=== PATIENT | female | born 1995 | race African-American/Black ===

== ENCOUNTER 2018-10-01 12:52 | Emergency (ER) | payer OTHER ==
[2018-10-01] MEDS ORDERED: IPRATROPIUM-ALBUTEROL 3 ML NEB INHALATION STA (13:05)
--- NOTE | 2018-10-01 13:07 | ED ---
SOB HPI - General Chief Complaint: Shortness of Breath Stated Complaint: Chest pain, ÁNGEL/asthma Time Seen by Provider: 10/01/18 13:00 Source: patient, RN notes reviewed Mode of arrival: ambulatory Limitations: no limitations - History of Present Illness Initial Comments: This is a 23-year-old female presents emergency Department with chief complaint of shortness of breath. Patient states she has underlying asthma and states that she recently has come down with upper respiratory infection. Patient states that she ran over her inhaler which she's noticed increasing wheezing and shortness of breath. Patient denies fever, chills, ear pain, sore throat, fever or chills. Patient has no nausea vomiting diarrhea constipation. She has no current chest pain. - Related Data Previous Rx's Medication Instructions Recorded Albuterol Sulfate [Proair Hfa] 1 - 2 puff INHALATION Q4HR PRN #1 10/01/18 inhaler Azithromycin [Zithromax Z-pack] 0 mg PO DIRECTED #1 pack 10/01/18 predniSONE 50 mg PO DAILY #5 tab 10/01/18 Allergies Allergy/AdvReac Type Severity Reaction Status Date / Time No Known Allergies Allergy Verified 10/01/18 13:25 Review of Systems ROS Statement: Those systems with pertinent positive or pertinent negative responses have been documented in the HPI. ROS Other: All systems not noted in ROS Statement are negative. Past Medical History Past Medical History: Asthma History of Any Multi-Drug Resistant Organisms: None Reported Past Surgical History: Appendectomy, Section Past Anesthesia/Blood Transfusion Reactions: No Reported Reaction Past Psychological History: No Psychological Hx Reported Smoking Status: Current some day smoker Past Alcohol Use History: None Reported Past Drug Use History: None Reported General Exam Limitations: no limitations General appearance: alert, in no apparent distress Head exam: Present: atraumatic, normocephalic, normal inspection Eye exam: Present: normal appearance, PERRL, EOMI. Absent: scleral icterus, conjunctival injection, periorbital swelling ENT exam: Present: normal exam, mucous membranes moist Neck exam: Present: normal inspection, full ROM. Absent: tenderness, meningismus, lymphadenopathy Respiratory exam: Present: wheezes. Absent: normal lung sounds bilaterally, respiratory distress, rales, rhonchi, stridor Cardiovascular Exam: Present: regular rate, normal rhythm, normal heart sounds. Absent: systolic murmur, diastolic murmur, rubs, gallop, clicks GI/Abdominal exam: Present: soft, normal bowel sounds. Absent: distended, tenderness, guarding, rebound, rigid Course Vital Signs 10/01/18 10/01/18 10/01/18 12:54 13:19 13:30 Temperature 99.1 F Pulse Rate 93 96 Respiratory 18 22 Rate Blood Pressure 126/88 O2 Sat by Pulse 99 Oximetry 10/01/18 13:39 Temperature Pulse Rate 92 Respiratory Rate Blood Pressure O2 Sat by Pulse Oximetry Medical Decision Making - Medical Decision Making 23-year-old female presents emergency Department chief complaint shortness breath with her asthma. Chest x-ray is unremarkable. She did receive a DuoNeb treatment which has resolved her symptoms. Patient be discharged with prednisone, pro-air inhaler. Patient will return for any worsening symptoms. Disposition Clinical Impression: Asthma exacerbation Disposition: HOME SELF-CARE Condition: Stable Instructions (If sedation given, give patient instructions): Asthma (ED) Additional Instructions: Please return to the Emergency Department if symptoms worsen or any other concerns. Prescriptions: predniSONE 50 mg PO DAILY #5 tab Albuterol Sulfate [Proair Hfa] 1 - 2 puff INHALATION Q4HR PRN #1 inhaler PRN Reason: difficulty in breathing Azithromycin [Zithromax Z-pack] 0 mg PO DIRECTED #1 pack Is patient prescribed a controlled substance at d/c from ED?: No Referrals: None,Stated [Primary Care Provider] - 1-2 days Time of Disposition: 13:48
--- NOTE | 2018-10-01 13:20 | XR ---
EXAMINATION TYPE: XR chest 2V DATE OF EXAM: 10/01/2018 COMPARISON: 02/28/2014 HISTORY: Cough and chest pain TECHNIQUE: Frontal and lateral views of the chest are obtained. FINDINGS: There is no focal air space opacity, pleural effusion, or pneumothorax seen. The cardiac silhouette size is within normal limits. The osseous structures are intact. IMPRESSION: No acute cardiopulmonary process.
[2018-10-01] MEDS ORDERED: IBUPROFEN 600 MG TAB PO STA (13:46)
[2018-10-01] MEDS ORDERED: methylPREDNISolone SOD SUCCI 125 MG/2 ML VIAL IM ONE (13:46)
[2018-10-01 14:14] VITALS: BP 139/94; PULSE 93; RESP 18; TEMP 99.3
== END 2018-10-01 14:15 | disposition home or self-care (01) ==
LOC: EC 12:52
DX: J45.901 Unspecified asthma with (acute) exacerbation (principal); F17.200 Nicotine dependence, unspecified, uncomplicated; Z90.49 Acquired absence of other specified parts of digestive tract
CPT/HCPCS: 99285; 94640; 71046; J2930

== ENCOUNTER 2018-12-16 10:53 | Emergency (ER) | payer OTHER ==
[2018-12-16 11:02] VITALS: RESP 18
[2018-12-16] MEDS ORDERED: SODIUM CHLORIDE 0.9% 1,000 ML IV STA (11:23)
[2018-12-16] MEDS ORDERED: KETOROLAC 30 MG/ML 1 ML VIAL IVP STA (11:23)
--- NOTE | 2018-12-16 11:28 | ED ---
Abdominal Pain HPI - General Chief Complaint: Abdominal Pain Stated Complaint: abdominal & back pain/vomiting Time Seen by Provider: 12/16/18 11:07 Source: patient Mode of arrival: ambulatory Limitations: no limitations - History of Present Illness Initial Comments: Patient is a 23-year-old female presenting to the emergency Department with complaints of abdominal pain times this morning. Patient reports waking up at 4 AM and had one episode of vomiting. Patient states then her upper abdomen started hurting and has been consistent since then. Patient states the pain is crampy and sharp in nature and located in the epigastric and right upper david drant. Patient states she is not been able to eat or drink anything today. Patient denies nausea and diarrhea at this time. Patient denies fever, chills, chest pain, shortness of breath. Patient reports history of appendectomy and 2 C-sections. Patient has history of asthma that is pretty well controlled. No other significant past medical history. Patient does not take daily medications. No other complaints at this time. - Related Data Home Medications Medication Instructions Recorded Confirmed No Known Home Medications 12/16/18 12/16/18 Allergies Allergy/AdvReac Type Severity Reaction Status Date / Time No Known Allergies Allergy Verified 12/16/18 11:23 Review of Systems ROS Statement: Those systems with pertinent positive or pertinent negative responses have been documented in the HPI. ROS Other: All systems not noted in ROS Statement are negative. Past Medical History Past Medical History: Asthma History of Any Multi-Drug Resistant Organisms: None Reported Past Surgical History: Appendectomy, Section Past Anesthesia/Blood Transfusion Reactions: No Reported Reaction Past Psychological History: No Psychological Hx Reported Smoking Status: Former smoker Past Alcohol Use History: None Reported Past Drug Use History: Marijuana General Exam - General Exam Comments Initial Comments: GENERAL: Well-appearing, well-nourished and in no acute distress, appears uncomfortable. HEAD: Atraumatic, normocephalic. EYES: Pupils equal round and reactive to light, extraocular movements intact, sclera anicteric, conjunctiva are normal. ENT: TMs normal, nares patent, oropharynx clear without exudates. Moist mucous membranes. NECK: Normal range of motion, supple without lymphadenopathy or JVD. LUNGS: Breath sounds clear to auscultation bilaterally and equal. No wheezes rales or rhonchi. HEART: Regular rate and rhythm without murmurs, rubs or gallops. ABDOMEN: Tenderness to the upper left and right quadrants as well as epigastric area. Soft, normoactive bowel sounds. No rebound. No masses appreciated. : Deferred EXTREMITIES: Normal range of motion, no pitting or edema. No clubbing or cyanosis. NEUROLOGICAL: Cranial nerves II through XII grossly intact. Normal speech, normal gait. PSYCH: Normal mood, normal affect. SKIN: Warm, Dry, normal turgor, no rashes or lesions noted. Limitations: no limitations Course Vital Signs 12/16/18 12/16/18 11:00 13:22 Temperature 98.5 F 98.0 F Pulse Rate 86 76 Respiratory 18 18 Rate Blood Pressure 123/78 132/71 O2 Sat by Pulse 100 99 Oximetry Medical Decision Making - Medical Decision Making Patient is a 23-year-old female presenting with right upper quadrant and epigastric pain as well as one episode of vomiting since this morning. Patient's vital signs are stable, afebrile. Patient is not been able eat or drink today. On exam patient has tenderness of the right upper quadrant and epigastric area. CBC, CMP, lactic acid are all within normal limits. Lipase is 83. UA is within normal limits. Urine HCG came back positive. Ultrasound of the gallbladder revealed a contracted gallbladder limiting the exam. No other evidence of acute cholecystitis. No other acute findings. Patient did receive some fluids and Toradol (before regnancy results.) Discussed with patient that her symptoms could be related to her new found and/or a viral illness. Patient is stable for discharge. Patient is in agreement with this plan. Case discussed with Dr. Jacobsen. Return parameters were discussed with the patient and she verbalized understanding. Patient will follow up with her [facility] [facility]. - Lab Data Result diagrams: 12/16/18 11:35 12/16/18 11:35 Lab Results 12/16/18 12/16/18 12/16/18 Range/Units 11:35 11:35 11:35 WBC 8.8 (3.8-10.6) k/uL RBC 4.53 (3.80-5.40) m/uL Hgb 13.0 (11.4-16.0) gm/dL Hct 39.4 (34.0-46.0) % MCV 86.9 (80.0-100.0) fL MCH 28.7 (25.0-35.0) pg MCHC 33.0 (31.0-37.0) g/dL RDW 13.9 (11.5-15.5) % Plt Count 247 (150-450) k/uL Neutrophils % 61 % Lymphocytes % 26 % Monocytes % 4 % Eosinophils % 7 % Basophils % 0 % Neutrophils # 5.4 (1.3-7.7) k/uL Lymphocytes # 2.3 (1.0-4.8) k/uL Monocytes # 0.3 (0-1.0) k/uL Eosinophils # 0.6 (0-0.7) k/uL Basophils # 0.0 (0-0.2) k/uL Sodium 141 (137-145) mmol/L Potassium 3.6 (3.5-5.1) mmol/L Chloride 110 H (98-107) mmol/L Carbon Dioxide 24 (22-30) mmol/L Anion Gap 7 mmol/L BUN 10 (7-17) mg/dL Creatinine 0.65 (0.52-1.04) mg/dL Est GFR (CKD-EPI)AfAm >90 (>60 ml/min/1.73 sqM) Est GFR (CKD-EPI)NonAf >90 (>60 ml/min/1.73 sqM) Glucose 87 (74-99) mg/dL Plasma Lactic Acid Mao (0.7-2.0) mmol/L Calcium 8.9 (8.4-10.2) mg/dL Total Bilirubin 0.3 (0.2-1.3) mg/dL AST 16 (14-36) U/L ALT 16 (9-52) U/L Alkaline Phosphatase 67 (38-126) U/L Total Protein 6.3 (6.3-8.2) g/dL Albumin 3.6 (3.5-5.0) g/dL Amylase 77 (30-110) U/L Lipase 83 (23-300) U/L Urine Color Urine Appearance (Clear) Urine pH (5.0-8.0) Ur Specific [place] (1.001-1.035) Urine Protein (Negative) Urine Glucose (UA) (Negative) Urine Ketones (Negative) Urine Blood (Negative) Urine Nitrite (Negative) Urine Bilirubin (Negative) Urine Urobilinogen (<2.0) mg/dL Ur Leukocyte Esterase (Negative) Urine HCG, Qual Detected (Not Detectd) 12/16/18 12/16/18 Range/Units 11:35 12:20 WBC (3.8-10.6) k/uL RBC (3.80-5.40) m/uL Hgb (11.4-16.0) gm/dL Hct (34.0-46.0) % MCV (80.0-100.0) fL MCH (25.0-35.0) pg MCHC (31.0-37.0) g/dL RDW (11.5-15.5) % Plt Count (150-450) k/uL Neutrophils % % Lymphocytes % % Monocytes % % Eosinophils % % Basophils % % Neutrophils # (1.3-7.7) k/uL Lymphocytes # (1.0-4.8) k/uL Monocytes # (0-1.0) k/uL Eosinophils # (0-0.7) k/uL Basophils # (0-0.2) k/uL Sodium (137-145) mmol/L Potassium (3.5-5.1) mmol/L Chloride (98-107) mmol/L Carbon Dioxide (22-30) mmol/L Anion Gap mmol/L BUN (7-17) mg/dL Creatinine (0.52-1.04) mg/dL Est GFR (CKD-EPI)AfAm (>60 ml/min/1.73 sqM) Est GFR (CKD-EPI)NonAf (>60 ml/min/1.73 sqM) Glucose (74-99) mg/dL Plasma Lactic Acid Mao 0.7 (0.7-2.0) mmol/L Calcium (8.4-10.2) mg/dL Total Bilirubin (0.2-1.3) mg/dL AST (14-36) U/L ALT (9-52) U/L Alkaline Phosphatase (38-126) U/L Total Protein (6.3-8.2) g/dL Albumin (3.5-5.0) g/dL Amylase (30-110) U/L Lipase (23-300) U/L Urine Color Yellow Urine Appearance Clear (Clear) Urine pH 6.5 (5.0-8.0) Ur Specific [place] 1.022 (1.001-1.035) Urine Protein Negative (Negative) Urine Glucose (UA) Negative (Negative) Urine Ketones Negative (Negative) Urine Blood Negative (Negative) Urine Nitrite Negative (Negative) Urine Bilirubin Negative (Negative) Urine Urobilinogen <2.0 (<2.0) mg/dL Ur Leukocyte Esterase Negative (Negative) Urine HCG, Qual (Not Detectd) Disposition Clinical Impression: Abdominal pain, Vomiting, Disposition: HOME SELF-CARE Condition: Stable Instructions (If sedation given, give patient instructions): Abdominal Pain (ED) Additional Instructions: Please return to the Emergency Department if symptoms worsen or any other concerns. Follow-up with [facility] [facility]. Is patient prescribed a controlled substance at d/c from ED?: No Referrals: None,Stated [Primary Care Provider] - 1-2 days
[2018-12-16 11:48] LABS: Basophils % (A) 0 %; Eosinophils # (A) 0.6 k/uL (0-0.7); Eosinophils % (A) 7 %; HCT 39.4 % (34.0-46.0); Lymphocytes # (A) 2.3 k/uL (1.0-4.8); Lymphocytes % (A) 26 %; MCH 28.7 pg (25.0-35.0); MCV 86.9 fL (80.0-100.0); Mean Platelet Volume 7.3; Monocytes # (A) 0.3 k/uL (0-1.0); Monocytes % (A) 4 %; Neutrophils # (A) 5.4 k/uL (1.3-7.7); Neutrophils % (A) 61 %; Platelet Count 247 k/uL (150-450); RBC 4.53 m/uL (3.80-5.40); RDW 13.9 % (11.5-15.5); WBC 8.8 k/uL (3.8-10.6)
[2018-12-16 11:55] LABS: ALT 16 U/L (9-52); AST 16 U/L (14-36); African American GFR (CKD) >90 (>60 ml/min/1.73 sqM); Albumin 3.6 g/dL (3.5-5.0); Alkaline Phosphatase 67 U/L (38-126); Amylase 77 U/L (30-110); Anion Gap 7 mmol/L; Blood Urea Nitrogen 10 mg/dL (7-17); Calcium 8.9 mg/dL (8.4-10.2); Carbon Dioxide 24 mmol/L (22-30); Chloride 110 mmol/L (98-107); Glucose 87 mg/dL (74-99); Potassium 3.6 mmol/L (3.5-5.1); Sodium 141 mmol/L (137-145); Total Bilirubin 0.3 mg/dL (0.2-1.3); Total Protein 6.3 g/dL (6.3-8.2)
[2018-12-16 11:57] LABS: Appearance,Urine Clear (Clear); Bilirubin,Urine Negative (Negative); Blood,Urine Negative (Negative); Color,Urine Yellow; Glucose,Urine (UA) Negative (Negative); Ketones,Urine Negative (Negative); Leukocyte Esterase,Urine Negative (Negative); Nitrite,Urine Negative (Negative); PH, Urine 6.5 (5.0-8.0); Protein,Urine Negative (Negative); Specific Gravity,Urine 1.022 (1.001-1.035); Urobilinogen,Urine <2.0 mg/dL (<2.0)
--- NOTE | 2018-12-16 12:44 | US ---
EXAMINATION TYPE: US gallbladder DATE OF EXAM: 12/16/2018 COMPARISON: NONE CLINICAL HISTORY: Pain. Generalized pain. Patient states she did not eat or drink today. Vomiting. EXAM MEASUREMENTS: Liver Length: 14.7 cm Gallbladder Wall: 0.3 cm CBD: 0.3 cm Right Kidney: 9.2 x 5.3 x 4.3 cm Pancreas: wnl Liver: wnl Gallbladder: Contracted, limited evaluation Evidence for sonographic Woody's sign: neg CBD: wnl Right Kidney: wnl IMPRESSION: Contracted gallbladder limiting evaluation for gallbladder wall thickening. No other evid ence of acute cholecystitis.
[2018-12-16 13:23] VITALS: BP 132/71; PULSE 76; TEMP 98
== END 2018-12-16 13:23 | disposition home or self-care (01) ==
LOC: EC 10:53
DX: O99.619 Diseases of the digestive system complicating pregnancy, unspecified trimester (principal); K82.0 Obstruction of gallbladder; O99.89 Other specified diseases and conditions complicating pregnancy, childbirth and the puerperium; M54.9 Dorsalgia, unspecified; Z90.49 Acquired absence of other specified parts of digestive tract; Z87.891 Personal history of nicotine dependence; Z3A.00 Weeks of gestation of pregnancy not specified
CPT/HCPCS: 99284; 96374; 96361; 36415; 80053; 82150; 83605; 83690; 85025; 81003; 81025; 84702; 76705; J1885

== ENCOUNTER 2019-01-03 23:20 | Emergency (ER) | payer OTHER ==
[2019-01-04] MEDS ORDERED: SODIUM CHLORIDE 0.9% 1,000 ML IV STA (00:19)
[2019-01-04] MEDS ORDERED: ACETAMINOPHEN TAB 500 MG TAB PO STA (01:30)
[2019-01-04] MEDS ORDERED: ALBUTEROL NEBULIZED 2.5 MG/3 ML INHALATION STA (01:37)
[2019-01-04 01:54] LABS: Basophils % (A) 0 %; Eosinophils # (A) 0.7 k/uL (0-0.7); Eosinophils % (A) 5 %; HCT 38.3 % (34.0-46.0); HGB 12.7 gm/dL (11.4-16.0); Lymphocytes # (A) 3.3 k/uL (1.0-4.8); Lymphocytes % (A) 26 %; MCH 29.4 pg (25.0-35.0); MCHC 33.1 g/dL (31.0-37.0); MCV 88.8 fL (80.0-100.0); Mean Platelet Volume 7.5; Monocytes # (A) 0.6 k/uL (0-1.0); Monocytes % (A) 5 %; Neutrophils # (A) 7.8 k/uL (1.3-7.7); Neutrophils % (A) 62 %; Platelet Count 263 k/uL (150-450); RBC 4.31 m/uL (3.80-5.40); RDW 14.4 % (11.5-15.5); WBC 12.6 k/uL (3.8-10.6)
[2019-01-04 01:56] LABS: Appearance,Urine Clear (Clear); Bilirubin,Urine Negative (Negative); Blood,Urine Negative (Negative); Color,Urine Light Yellow; Glucose,Urine (UA) Negative (Negative); Ketones,Urine Negative (Negative); Leukocyte Esterase,Urine Negative (Negative); Nitrite,Urine Negative (Negative); PH, Urine 6.5 (5.0-8.0); Protein,Urine Negative (Negative); Specific Gravity,Urine 1.011 (1.001-1.035); Urobilinogen,Urine <2.0 mg/dL (<2.0)
--- NOTE | 2019-01-04 01:56 | ED ---
Abdominal Pain HPI - General Chief Complaint: Abdominal Pain Stated Complaint: Abd Pain, Preg Time Seen by Provider: 01/03/19 23:34 Source: patient Mode of arrival: ambulatory Limitations: no limitations - History of Present Illness Initial Comments: 24-year-old female patient presents to the emergency department today for evaluation of right-sided abdominal pain. Patient states she is also experiencing right low back pain. Patient states that she has had positive test but she is unsure how far along she is. States her last period was in November. She denies any abnormal vaginal bleeding or discharge. Denies any hematuria, dysuria, urinary frequency, urinary urgency. Denies abnormal vaginal bleeding or discharge. She denies nausea or vomiting with this. Denies constipation or diarrhea. Denies fever or chills. Patient is . She has first appointment with Dr. Viera on 01/18/19. Patient denies any recent rash, shortness breath, chest pain, abdominal pain, back pain, numbness, tingling, dizziness, weakness, headache, visual changes, or any other complaints. - Related Data Home Medications Medication Instructions Recorded Confirmed No Known Home Medications 12/16/18 12/16/18 Allergies Allergy/AdvReac Type Severity Reaction Status Date / Time No Known Allergies Allergy Verified 12/16/18 11:23 Review of Systems ROS Statement: Those systems with pertinent positive or pertinent negative responses have been documented in the HPI. ROS Other: All systems not noted in ROS Statement are negative. Past Medical History Past Medical History: Asthma History of Any Multi-Drug Resistant Organisms: None Reported Past Surgical History: Appendectomy, Section Past Anesthesia/Blood Transfusion Reactions: No Reported Reaction Past Psychological History: No Psychological Hx Reported Smoking Status: Former smoker Past Alcohol Use History: None Reported Past Drug Use History: Marijuana General Exam Limitations: no limitations General appearance: alert, in no apparent distress, other (This is a well- developed, well-nourished adult female patient in no acute distress. Vital signs upon presentation are temperature 98.7F, pulse 90, respirations 18, blood pressure 111/75, pulse ox 100% on room air.) Eye exam: Present: normal appearance, PERRL, EOMI. Absent: scleral icterus, conjunctival injection, periorbital swelling ENT exam: Present: normal exam, normal oropharynx, mucous membranes moist Respiratory exam: Present: normal lung sounds bilaterally. Absent: respiratory distress, wheezes, rales, rhonchi, stridor Cardiovascular Exam: Present: regular rate, normal rhythm, normal heart sounds. Absent: systolic murmur, diastolic murmur, rubs, gallop, clicks GI/Abdominal exam: Present: soft, tenderness (Right middle and right lower quadrant tenderness. ), normal bowel sounds. Absent: distended, guarding, rebound, rigid Neurological exam: Present: alert, oriented X3, CN II-XII intact Psychiatric exam: Present: normal affect, normal mood Skin exam: Present: warm, dry, intact, normal color. Absent: rash Course Vital Signs 01/03/19 01/04/19 01/04/19 23:26 02:16 02:22 Temperature 98.7 F Pulse Rate 90 92 92 Respiratory 18 Rate Blood Pressure 111/75 O2 Sat by Pulse 100 Oximetry Medical Decision Making - Medical Decision Making 24-year-old female patient presents to the emergency department today for evaluation of right-sided abdominal pain. Physical examination did reveal right mid abdomen and right lower quadrant tenderness. No CVA tenderness. Labs reviewed and did reveal mildly elevated white blood cell count at 12.6. Urinalysis showed no evidence for infection or red blood cells. Patient denies any abnormal vaginal bleeding or discharge. Transvaginal ultrasound was obtained and did show a viable intrauterine measuring 6 weeks. I did discuss findings and results with the patient. Upon reevaluation she reports her abdominal pain has resolved. We did discuss possibility of appendicitis given location of pain. She is instructed to follow-up with her primary care physician for recheck in 1-2 days. Return parameters were discussed in detail. She is to maintain low threshold for return. She verbalizes understanding and agrees with this plan. - Lab Data Result diagrams: 01/04/19 00:46 01/04/19 00:46 Lab Results 01/04/19 01/04/19 01/04/19 Range/Units 00:46 00:46 00:46 WBC 12.6 H (3.8-10.6) k/uL RBC 4.31 (3.80-5.40) m/uL Hgb 12.7 (11.4-16.0) gm/dL Hct 38.3 (34.0-46.0) % MCV 88.8 (80.0-100.0) fL MCH 29.4 (25.0-35.0) pg MCHC 33.1 (31.0-37.0) g/dL RDW 14.4 (11.5-15.5) % Plt Count 263 (150-450) k/uL Neutrophils % 62 % Lymphocytes % 26 % Monocytes % 5 % Eosinophils % 5 % Basophils % 0 % Neutrophils # 7.8 H (1.3-7.7) k/uL Lymphocytes # 3.3 (1.0-4.8) k/uL Monocytes # 0.6 (0-1.0) k/uL Eosinophils # 0.7 (0-0.7) k/uL Basophils # 0.0 (0-0.2) k/uL Sodium 137 (137-145) mmol/L Potassium 3.7 (3.5-5.1) mmol/L Chloride 106 (98-107) mmol/L Carbon Dioxide 24 (22-30) mmol/L Anion Gap 7 mmol/L BUN 13 (7-17) mg/dL Creatinine 0.47 L (0.52-1.04) mg/dL Est GFR (CKD-EPI)AfAm >90 (>60 ml/min/1.73 sqM) Est GFR (CKD-EPI)NonAf >90 (>60 ml/min/1.73 sqM) Glucose 71 L (74-99) mg/dL Calcium 9.6 (8.4-10.2) mg/dL Total Bilirubin 0.2 (0.2-1.3) mg/dL AST 19 (14-36) U/L ALT 24 (9-52) U/L Alkaline Phosphatase 78 (38-126) U/L Total Protein 6.9 (6.3-8.2) g/dL Albumin 4.0 (3.5-5.0) g/dL Amylase 86 (30-110) U/L Lipase 103 (23-300) U/L Urine Color Light Yellow Urine Appearance Clear (Clear) Urine pH 6.5 (5.0-8.0) Ur Specific [place] 1.011 (1.001-1.035) Urine Protein Negative (Negative) Urine Glucose (UA) Negative (Negative) Urine Ketones Negative (Negative) Urine Blood Negative (Negative) Urine Nitrite Negative (Negative) Urine Bilirubin Negative (Negative) Urine Urobilinogen <2.0 (<2.0) mg/dL Ur Leukocyte Esterase Negative (Negative) - Radiology Data Radiology results: report reviewed Transvaginal ultrasound was obtained. Report was reviewed in its entirety. Impression by Dr. Paul shows viable single intrauterine measuring 6 weeks 0 days for heart rate of 116. Estimated delivery date of 08/30/2019. Disposition Clinical Impression: Abdominal pain, Early stage of Disposition: HOME SELF-CARE Condition: Good Instructions (If sedation given, give patient instructions): Abdominal Pain in (ED) Additional Instructions: Increase fluids. Rest. Take Tylenol for pain control. Follow-up with your primary care physician and [facility] for recheck as soon as possible. Return to the emergency department immediately for any new, worsening, or concerning symptoms. Is patient prescribed a controlled substance at d/c from ED?: No Referrals: Ravinder Viera DO [Doctor of Osteopathic Medicine] - 1-2 days Time of Disposition: 03:17
[2019-01-04 02:07] LABS: ALT 24 U/L (9-52); AST 19 U/L (14-36); African American GFR (CKD) >90 (>60 ml/min/1.73 sqM); Alkaline Phosphatase 78 U/L (38-126); Amylase 86 U/L (30-110); Anion Gap 7 mmol/L; Blood Urea Nitrogen 13 mg/dL (7-17); Calcium 9.6 mg/dL (8.4-10.2); Carbon Dioxide 24 mmol/L (22-30); Chloride 106 mmol/L (98-107); Glucose 71 mg/dL (74-99); Potassium 3.7 mmol/L (3.5-5.1); Sodium 137 mmol/L (137-145); Total Bilirubin 0.2 mg/dL (0.2-1.3); Total Protein 6.9 g/dL (6.3-8.2)
--- NOTE | 2019-01-04 03:01 | US ---
Ultrasound First Trimester INDICATION: Pelvic pain COMPARISON: None. TECHNIQUE: Real-time sonographic evaluation of the female pelvis obtained using grayscale and color flow. Transabdominal technique is utilized. FINDINGS: The uterus measures 9.4 x 5 x 2 x 5.4 cm. There is an intrauterine gestational sac containing a yolk sac and pole. [place]-rump length measures 4 mm corresponding to 6 weeks 0 days estimated gestational age. Sonographic BRIGID is 08/30/19. heart rate measures 116 bpm. Right ovary measures 2.8 x 1.9 x 2.1 cm. Left ovary measures 3.5 x 2.5 x 2.7 cm. There is a left ovarian corpus luteum cyst measuring 2.1 cm. There is no evidence of abnormal adnexal mass. There is no significant free pelvic fluid. IMPRESSION: 1. Viable single IUP measuring 6 weeks 0 days with a heart rate of 116 bpm and an estimated delivery date of 08/30/2019.
[2019-01-04 03:44] VITALS: BP 113/64; PULSE 83; RESP 17; TEMP 98.8
== END 2019-01-04 03:45 | disposition home or self-care (01) ==
LOC: EC 23:20
DX: O99.111 Other diseases of the blood and blood-forming organs and certain disorders involving the immune mechanism complicating pregnancy, first trimester (principal); D72.829 Elevated white blood cell count, unspecified; O99.89 Other specified diseases and conditions complicating pregnancy, childbirth and the puerperium; M54.5 Low back pain; Z3A.01 Less than 8 weeks gestation of pregnancy; Z90.49 Acquired absence of other specified parts of digestive tract; Z87.891 Personal history of nicotine dependence
CPT/HCPCS: 36415; 76801; 80053; 81003; 82150; 83690; 85025; 94640; 96360; 99284

== ENCOUNTER 2019-02-02 19:07 | Emergency (ER) | payer OTHER ==
[2019-02-02] MEDS ORDERED: IPRATROPIUM-ALBUTEROL 3 ML NEB INHALATION STA (21:14)
--- NOTE | 2019-02-02 21:56 | XR ---
EXAMINATION: XR chest 2V DATE AND TIME: 02/02/2019 9:35 PM CLINICAL INDICATION: PHH; difficulty breathing TECHNIQUE: Departmental protocol COMPARISON: 10/01/2018 FINDINGS: The overlying soft tissues are prominent. The lungs are clear, and the pleural spaces are negative. The cardiac silhouette is not enlarged. The remainder of the mediastinal silhouette is unremarkable. The skeletal structures and soft tissues are negative for acute findings. IMPRESSION: NO ACUTE RADIOGRAPHIC PROCESS.
[2019-02-02 22:08] LABS: Basophils # (A) 0.1 k/uL (0-0.2); Basophils % (A) 0 %; Eosinophils # (A) 0.3 k/uL (0-0.7); Eosinophils % (A) 3 %; HCT 34.7 % (34.0-46.0); HGB 11.8 gm/dL (11.4-16.0); Lymphocytes # (A) 2.1 k/uL (1.0-4.8); Lymphocytes % (A) 15 %; MCH 29.5 pg (25.0-35.0); MCHC 34.1 g/dL (31.0-37.0); MCV 86.5 fL (80.0-100.0); Mean Platelet Volume 6.9; Monocytes # (A) 0.5 k/uL (0-1.0); Monocytes % (A) 3 %; Neutrophils # (A) 10.7 k/uL (1.3-7.7); Neutrophils % (A) 77 %; Platelet Count 231 k/uL (150-450); RBC 4.01 m/uL (3.80-5.40); RDW 14.1 % (11.5-15.5); WBC 13.8 k/uL (3.8-10.6)
[2019-02-02 22:17] LABS: ALT 19 U/L (9-52); AST 19 U/L (14-36); African American GFR (CKD) >90 (>60 ml/min/1.73 sqM); Albumin 3.8 g/dL (3.5-5.0); Alkaline Phosphatase 76 U/L (38-126); Anion Gap 10 mmol/L; Blood Urea Nitrogen 9 mg/dL (7-17); Calcium 9.3 mg/dL (8.4-10.2); Carbon Dioxide 21 mmol/L (22-30); Chloride 106 mmol/L (98-107); Glucose 71 mg/dL (74-99); Potassium 3.7 mmol/L (3.5-5.1); Sodium 137 mmol/L (137-145); Total Bilirubin 0.2 mg/dL (0.2-1.3); Total Protein 6.9 g/dL (6.3-8.2)
--- NOTE | 2019-02-02 22:46 | US ---
EXAMINATION TYPE: Transabdominal DATE OF EXAM: 02/02/2019 10:25 PM COMPARISON: US CLINICAL HISTORY: abd pain. Abdominal pain. 2 C-Sections. . EXAM PERFORMED: Transabdominal (TA) EXAM MEASUREMENTS: GESTATIONAL AGE / DATING Physician Established: (10 weeks/1 day) EDC: 08/30/2019 Dates by LMP: Unknown Dates by First Scan: (10 weeks/1 day) EDC: 08/30/2019 Dates by Current Scan for: (10 weeks/3 days) EDC: 08/28/2019 MATERNAL ANATOMY Uterus: 12.0 x 8.5 x 7.7 cm. Right Ovary: 3.7 x 1.8 x 3.7 cm. Left Ovary: 3.2 x 2.1 x 1.8 cm. Post CDS / Adnexa: appear wnl Presence of free fluid: none seen Presence of corpus luteal cyst: Hypoechoic area seen left ovary measuring; 1.9 x 1.7 x 1.7 cm. Presence of subchorionic bleed: not seen GESTATION / SURVEY CRL: 3.57 cm. (10 weeks/3 days) Yolk Sac (normal less than 6mm): 4.4 mm Heart Rate: 163 bpm Rhythm: Normal IUP: Viable IUP Nuchal Translucency 10-14wks (normal less than 3mm): not clearly visualized Date of LMP: Unknown Beta HcG (if available): Not available IMPRESSION: Ultrasound gestational age is 10 weeks and 1 day. No complicating process seen.
[2019-02-03 00:12] LABS: HCG,Quantitative Serum 93893.6 mIU/mL
[2019-02-03] MEDS ORDERED: IPRATROPIUM-ALBUTEROL 3 ML NEB INHALATION STA (00:24)
--- NOTE | 2019-02-03 01:05 | ED ---
SOB HPI - General Chief Complaint: Shortness of Breath Stated Complaint: ÁNGEL,, 10wks preg Time Seen by Provider: 02/02/19 19:40 Source: patient Mode of arrival: ambulatory Limitations: no limitations - History of Present Illness Initial Comments: The patient is a 24-year-old female presents emergency Department with reported has been exacerbation. She reports her the past several days she has had increased worker breathing. She has had an upper respiratory infection which has exacerbated her asthma. She has been using her albuterol inhaler at home however it is not helping her symptoms. The patient reports that her 2 children have been sick with nasal drainage. She herself is suffering from clear nasal drainage. She also has a bronchospastic cough. Denies productive cough, hemoptysis or chest pain. No reported fevers. No history of DVT or PE. No family history of blood clotting disorders. No recent travel or antibiotic use. She has never been intubated for her asthma. States that she infrequently has to come to the hospital for her symptoms. She denies any nausea, vomiting, back pain. She does report abdominal pain. She reports that she is [address] Viera. She is . She denies any vaginal bleeding or discharge. No concern for sexually transmitted infections. She has previously established care and had an ultrasound performed. No concerns with this . She denies any dysuria, hematuria or difficulty voiding. Denies any change in her bowel movements including diarrhea, cuts patient, melanotic stools or hematochezia. There are no other alleviating, precipitating or modifying factors - Related Data Previous Rx's Medication Instructions Recorded Ipratropium-Albuterol Nebulize 3 ml INHALATION QID PRN #30 neb 02/03/19 [Duoneb 0.5 mg-3 mg/3 ml Soln] Sodium Chloride 0.9% Nebuliz 3 ml INHALATION QID PRN #30 nebu 02/03/19 [Saline 0.9% For Nebulization] Allergies Allergy/AdvReac Type Severity Reaction Status Date / Time No Known Allergies Allergy Verified 02/02/19 21:27 Review of Systems ROS Statement: Those systems with pertinent positive or pertinent negative responses have been documented in the HPI. ROS Other: All systems not noted in ROS Statement are negative. Past Medical History Past Medical History: Asthma History of Any Multi-Drug Resistant Organisms: None Reported Past Surgical History: Appendectomy, Section Past Anesthesia/Blood Transfusion Reactions: No Reported Reaction Past Psychological History: No Psychological Hx Reported Smoking Status: Current some day smoker Past Alcohol Use History: None Reported Past Drug Use History: Marijuana General Exam Limitations: no limitations General appearance: alert, in no apparent distress Head exam: Present: atraumatic, normocephalic, normal inspection Eye exam: Present: normal appearance, PERRL, EOMI. Absent: scleral icterus, conjunctival injection, periorbital swelling ENT exam: Present: normal exam, mucous membranes moist Neck exam: Present: normal inspection. Absent: tenderness, meningismus, lymphadenopathy Respiratory exam: Present: normal lung sounds bilaterally, other (bronchospastic cough. No wheeze. No accessory muscle use. No coversational dypnea. No signs of respiratory distress.). Absent: respiratory distress, wheezes, rales, rhonchi, stridor Cardiovascular Exam: Present: regular rate, normal rhythm, normal heart sounds. Absent: systolic murmur, diastolic murmur, rubs, gallop, clicks GI/Abdominal exam: Present: soft, normal bowel sounds. Absent: distended, tenderness, guarding, rebound, rigid Extremities exam: Present: normal inspection, full ROM, normal capillary refill. Absent: tenderness, pedal edema, joint swelling, calf tenderness Back exam: Present: normal inspection Neurological exam: Present: alert, oriented X3, CN II-XII intact Psychiatric exam: Present: normal affect, normal mood Skin exam: Present: warm, dry, intact, normal color. Absent: rash Course Vital Signs 02/02/19 02/02/19 02/02/19 19:39 22:02 22:16 Temperature 98.7 F Pulse Rate 108 H 88 Respiratory 20 18 Rate Blood Pressure 123/82 O2 Sat by Pulse 100 Oximetry 02/02/19 02/03/19 02/03/19 22:24 01:05 01:13 Temperature Pulse Rate 96 84 84 Respiratory Rate Blood Pressure O2 Sat by Pulse Oximetry 02/03/19 01:27 Temperature 98.0 F Pulse Rate 80 Respiratory 20 Rate Blood Pressure 136/78 O2 Sat by Pulse 98 Oximetry Medical Decision Making - Medical Decision Making Upon arrival the patient is placed into room 22. She is hooked up to continuous pulse ox and cardiac monitoring. A thorough history and physical exam was performed. The patient is provided with a DuoNeb breathing treatment. Laboratory studies were conducted. The patient was sent for a ultrasound of her pelvis. I also performed a chest x-ray with a shielded abdomen. Laboratory studies demonstrate a white blood cell count of 13.8, glucose 71, beta Quant is 93,893. On of the demonstrates an intrauterine with positive heart tones of 163. I discussed these results with the patient. She was given a second DuoNeb breathing treatment as she remains bronchospastic. I did discuss the diagnosis, differential and treatment options. The patient does refuse steroids because of the risk to the baby. She also refuses Tessalon Perles as they are category C. The patient remains bronchospastic. Because of this I did recommend admission to the hospital however the patient does have 2 small children with her for which she states she has noted to take care of them. They do persuade her to call family members however she states that none are available. She reports that she cannot stay in the hospital. The patient does have a nebulizer at home. I did discuss treatment with DuoNeb breathing treatment as well as nebulized saline. The patient is requesting a work note. At this time the patient will be discharged home. I did inform her that if she has any new or worsening symptoms or is able to find someone to watch her children that she should return to the emergency department for further treatment. The patient did not demonstrate any signs of respiratory distress. She was in agreement with the treatment plan and she was discharged home in stable condition - Lab Data Result diagrams: 02/02/19 21:52 02/02/19 21:52 Lab Results 02/02/19 02/02/19 Range/Units 21:52 21:52 WBC 13.8 H (3.8-10.6) k/uL RBC 4.01 (3.80-5.40) m/uL Hgb 11.8 (11.4-16.0) gm/dL Hct 34.7 (34.0-46.0) % MCV 86.5 (80.0-100.0) fL MCH 29.5 (25.0-35.0) pg MCHC 34.1 (31.0-37.0) g/dL RDW 14.1 (11.5-15.5) % Plt Count 231 (150-450) k/uL Neutrophils % 77 % Lymphocytes % 15 % Monocytes % 3 % Eosinophils % 3 % Basophils % 0 % Neutrophils # 10.7 H (1.3-7.7) k/uL Lymphocytes # 2.1 (1.0-4.8) k/uL Monocytes # 0.5 (0-1.0) k/uL Eosinophils # 0.3 (0-0.7) k/uL Basophils # 0.1 (0-0.2) k/uL Sodium 137 (137-145) mmol/L Potassium 3.7 (3.5-5.1) mmol/L Chloride 106 (98-107) mmol/L Carbon Dioxide 21 L (22-30) mmol/L Anion Gap 10 mmol/L BUN 9 (7-17) mg/dL Creatinine 0.48 L (0.52-1.04) mg/dL Est GFR (CKD-EPI)AfAm >90 (>60 ml/min/1.73 sqM) Est GFR (CKD-EPI)NonAf >90 (>60 ml/min/1.73 sqM) Glucose 71 L (74-99) mg/dL Calcium 9.3 (8.4-10.2) mg/dL Total Bilirubin 0.2 (0.2-1.3) mg/dL AST 19 (14-36) U/L ALT 19 (9-52) U/L Alkaline Phosphatase 76 (38-126) U/L Total Protein 6.9 (6.3-8.2) g/dL Albumin 3.8 (3.5-5.0) g/dL HCG, Quant 49896.6 mIU/mL - EKG Data EKG Comments: EKG demonstrates a normal sinus rhythm with a ventricular rate of 96. NH interval 144. QRS 76. QTC 447. No acute ST segment elevations or depressions concerning for ischemic changes Disposition Clinical Impression: Early stage of , Asthma exacerbation Disposition: HOME SELF-CARE Condition: Stable Instructions (If sedation given, give patient instructions): Asthma (ED) Prescriptions: Ipratropium-Albuterol Nebulize [Duoneb 0.5 mg-3 mg/3 ml Soln] 3 ml INHALATION QID PRN #30 neb PRN Reason: Cough Sodium Chloride 0.9% Nebuliz [Saline 0.9% For Nebulization] 3 ml INHALATION QID PRN #30 nebu PRN Reason: Cough Is patient prescribed a controlled substance at d/c from ED?: No Referrals: None,Stated [Primary Care Provider] - 1-2 days Time of Disposition: 01:05
[2019-02-03 01:30] VITALS: BP 136/78; PULSE 80; RESP 20; TEMP 98
== END 2019-02-03 01:30 | disposition home or self-care (01) ==
LOC: EC 19:07
DX: O99.511 Diseases of the respiratory system complicating pregnancy, first trimester (principal); J45.901 Unspecified asthma with (acute) exacerbation; O99.89 Other specified diseases and conditions complicating pregnancy, childbirth and the puerperium; R10.9 Unspecified abdominal pain; O99.331 Smoking (tobacco) complicating pregnancy, first trimester; F17.200 Nicotine dependence, unspecified, uncomplicated; Z90.49 Acquired absence of other specified parts of digestive tract; Z3A.10 10 weeks gestation of pregnancy; Z53.29 Procedure and treatment not carried out because of patient's decision for other reasons
CPT/HCPCS: 36415; 71046; 76801; 80053; 84702; 85025; 93005; 94640; 99285

== ENCOUNTER 2019-05-05 10:28 | Inpatient (IN) | payer OTHER ==
--- NOTE | 2019-05-05 10:36 | ED ---
General Adult HPI - General Chief complaint: Shortness of Breath Stated complaint: ÁNGEL Time Seen by Provider: 05/05/19 10:30 Source: EMS Mode of arrival: EMS Limitations: no limitations - History of Present Illness Initial comments: Dictation was produced using [employer] dictation software. please excuse any grammatical, word or spelling errors. Chief Complaint: 24-year-old female transferred from [facility] for asthma exacerbation. History of Present Illness: 24-year-old female she was transferred from [facility] for asthma exacerbation. Patient is allegedly 5 months . Patient initially presented to [facility] for chief complaint of shortness of breath. Patient has extensive history of asthma. She denies ever having been in the intensive care unit for her asthma. Denies any intubations for asthma. She states she's been coughing. At [facility] patient was given steroids and 3 breathing treatments. They're unable to admit patient to the facility given that patient has flat . The ROS documented in this emergency department record has been reviewed and confirmed by me. Those systems with pertinent positive or negative responses have been documented in the HPI. All other systems are other negative and/or noncontributory. PHYSICAL EXAM: General Impression: Alert and oriented x3, not in acute distress HEENT: Normocephalic atraumatic, extra-ocular movements intact, pupils equal and reactive to light bilaterally, mucous membranes moist. Cardiovascular: Heart regular rate and rhythm, S1&S2 audible, no murmurs, rubs or gallops Chest: Bilateral lung and expiratory wheezing Abdomen: Bowel sounds present, abdomen soft, non-tender, non-distended, no organomegaly Musculoskeletal: Pulses present and equal in all extremities, no peripheral edema Motor: no focal deficits noted Neurological: CN II-XII grossly intact, no focal motor or sensory deficits noted Skin: Intact with no visualized rashes Psych: Normal affect and mood ED course: 24-year-old female transferred to our hospital from [facility] for asthma exacerbation. Patient is 5 months . Vital signs upon arrival are within acceptable limits. Patient wheezing however not showing significant work of breathing. She is given steroids and breathing treatments there. Transfer documentation was reviewed. Patient will be admitted. - Related Data Previous Rx's Medication Instructions Recorded Ipratropium-Albuterol Nebulize 3 ml INHALATION QID PRN #30 neb 02/03/19 [Duoneb 0.5 mg-3 mg/3 ml Soln] Sodium Chloride 0.9% Nebuliz 3 ml INHALATION QID PRN #30 nebu 02/03/19 [Saline 0.9% For Nebulization] Allergies Allergy/AdvReac Type Severity Reaction Status Date / Time No Known Allergies Allergy Verified 02/02/19 21:27 Review of Systems ROS Statement: Those systems with pertinent positive or pertinent negative responses have been documented in the HPI. ROS Other: All systems not noted in ROS Statement are negative. Past Medical History Past Medical History: Asthma History of Any Multi-Drug Resistant Organisms: None Reported Past Surgical History: Appendectomy, Section Past Anesthesia/Blood Transfusion Reactions: No Reported Reaction Past Psychological History: No Psychological Hx Reported Smoking Status: Current some day smoker Past Alcohol Use History: None Reported Past Drug Use History: Marijuana General Exam Limitations: no limitations Course Vital Signs 05/05/19 05/05/19 10:33 10:36 Temperature 98.2 F Pulse Rate 118 H Respiratory 18 20 Rate Blood Pressure 112/77 O2 Sat by Pulse 96 Oximetry Disposition Clinical Impression: Asthma Disposition: ADMITTED IP TO THIS HOSP Condition: Fair Referrals: None,Stated [Primary Care Provider] - 1-2 days Decision Time: 11:08
[2019-05-05] MEDS ORDERED: NALOXONE 0.4 MG/ML 1 ML VIAL IV PRN (11:05)
[2019-05-05] MEDS: IPRATROPIUM-ALBUTEROL 3 ML NEB INHALATION PRN ×3 (11:32→20:52)
[2019-05-05] MEDS: SODIUM CHLORIDE 0.9% 1,000 ML IV SCH (12:00)
[2019-05-05] MEDS ORDERED: methylPREDNISolone SOD SUCCI 125 MG/2 ML VIAL IV SCH (12:15)
--- NOTE | 2019-05-05 12:39 | P.CNPUL ---
History of Present Illness Consult date: 05/05/19 Requesting physician: Herrera Guillaume Reason for consult: dyspnea, asthma Chief complaint: Shortness of breath, chest tightness and wheezing History of present illness: This is a very pleasant 24-year-old female patient with no known primary care physician. She does have a history of mild intermittent chronic bronchial asthma and his Ventolin HFA at home. Sometimes she uses her mother's nebulizer. She has chronic and ongoing tobacco dependence. Occasional marijuana use. She states she is currently 5 months . She originally presented to the [facility] ER earlier this morning with complaints of shortness of breath, chest tightness and wheezing. Due to her she was transferred here to the emergency room for OB care. She is seen today in consultation in the emergency room. She is currently awake and alert in no acute distress. Maintaining O2 saturations in the 90s on room air. She is dyspneic with minimal exertion. Somewhat bronchospastic and wheezy. No fever, chills or night sweats. She is afebrile. Tachycardic. Review of Systems REVIEW OF SYSTEMS: CONSTITUTIONAL: Denies any recent significant weight loss or weight gain. EYES: Denies change in vision. EARS, NOSE, MOUTH, THROAT: Denies headaches, denies sore throat. CARDIOVASCULAR: Denies chest pain, palpitations or syncopal episodes. RESPIRATORY: Positive for shortness of breath, cough, congestion no hemoptysis. GASTROINTESTINAL: Denies change in appetite, denies abdominal pain GENITOURINARY: Denies hematuria, denies infections. MUSKULOSKELETAL: Denies pain, denies swelling. INTEGUMENTARY: Denies rash, denies eczema. NEUROLOGICAL: Denies recent memory loss, no recent seizure activity. PSYCHIATRIC: Denies anxiety, denies depression. HEMATOLOGIC/LYMPHATIC: Denies anemia, denies enlarged lymph nodes. Past Medical History Past Medical History: Asthma History of Any Multi-Drug Resistant Organisms: None Reported Past Surgical History: Appendectomy, Section Past Anesthesia/Blood Transfusion Reactions: No Reported Reaction Past Psychological History: No Psychological Hx Reported Smoking Status: Current some day smoker Past Alcohol Use History: None Reported Past Drug Use History: Marijuana Additional History: Denies any significant medical family history Medications and Allergies Home Medications Medication Instructions Recorded Confirmed Type Albuterol Inhaler [Ventolin Hfa 2 puff INHALATION RT-Q4H PRN 05/05/19 05/05/19 History Inhaler] Allergies Allergy/AdvReac Type Severity Reaction Status Date / Time No Known Allergies Allergy Verified 05/05/19 11:15 Physical Exam Vitals: Vital Signs Temp Pulse Resp BP Pulse Ox 05/05/19 12:11 112 H 18 124/84 96 05/05/19 11:43 122 H 05/05/19 11:32 117 H 05/05/19 11:27 120 H 18 115/80 95 05/05/19 10:36 20 05/05/19 10:33 98.2 F 118 H 18 112/77 96 Intake and Output 05/04/19 05/05/19 05/05/19 22:59 06:59 14:59 Other: Weight 74.389 kg GENERAL EXAM: Alert, pleasant 24-year-old female patient, states 5 weeks gestation, active, comfortable in no apparent distress. HEAD: Normocephalic. EYES: Normal reaction of pupils, equal size. NOSE: Clear with pink turbinates. THROAT: No erythema or exudates. NECK: No masses, no JVD. CHEST: No chest wall deformity. LUNGS: Equal air entry with bilateral end expiratory wheeze. CVS: S1 and S2 normal with no audible murmur, regular rhythm. ABDOMEN: Gestational abdomen, normal bowel sounds, no guarding or rigidity. SPINE: No scoliosis or deformity SKIN: No rashes CENTRAL NERVOUS SYSTEM: No focal deficits, tone is normal in all 4 extremities. EXTREMITIES: There is no peripheral edema. No clubbing, no cyanosis. Peripheral pulses are intact. Assessment and Plan Assessment: 1 Acute exacerbation of mild intermittent chronic bronchial asthma 2 , stating 5 months 3 Chronic and ongoing tobacco use 4 Marijuana use Plan The patient was seen and evaluated by Dr. Soto Initiate IV Solu-Medrol Initiate DuoNeb inhalations and Pulmicort inhalations Add azithromycin empirically The patient is educated regarding the importance of complete smoking cessation We'll continue to follow I, the cosigning physician, performed a history & physical examination of the patient. Lungs sounds with bilateral end expiratory wheeze. Maintaining good O2 saturations in the 90s on room air. I discussed the assessment and plan of care with my nurse practitioner, Malena Hernandez. I attest to the above note as dictated by her. Time with Patient: Greater than 30
[2019-05-05] MEDS: AZITHROMYCIN 500 MG TAB PO SCH (15:17)
--- NOTE | 2019-05-05 16:06 | P.OBCN ---
History of Present Illness Consult date: 05/05/19 Requesting physician: Herrera E Sheet Reason for consult: early problem Chief complaint: Asthma exacerbation History of present illness: Patient is a 24-year-old female known to me through her . She is 23 weeks gestation and reports that yesterday due to changes in weather and all the other people around her that had been sick she began having acute exacerbation of her asthma. Normally she does have an inhaler that she uses, but she reports that nobody has been managing her asthma other than herself. She is admitted for pulmonary consultation and medicine options for better management of her asthma. She is admitted to internal medicine this time. heart tones are noted through labor and delivery. A vitamin has been ordered and as precaution flu swab has been ordered. All questions were answered for her at this time. She has no other concerns at this time from a standpoint. Her vital signs are currently stable. She is afebrile. Lungs bilateral wheezes. She however is not showing any acute shortness of breath and is not struggling to breathe. That said, if her asthma exacerbation is worsening, there is no reason to keep her on labor and delivery and transferred to high level acuity of care floor is certainly indicated in that setting. Assessment intrauterine Precis 23 weeks with acute exacerbation of asthma Plan your medical management Past Medical History Past Medical History: Asthma History of Any Multi-Drug Resistant Organisms: None Reported Past Surgical History: Appendectomy, Section Past Anesthesia/Blood Transfusion Reactions: No Reported Reaction Past Psychological History: No Psychological Hx Reported Smoking Status: Light tobacco smoker Past Alcohol Use History: None Reported Past Drug Use History: None Reported - Past Family History Mother Family Medical History: Diabetes Mellitus, Hypertension Medications and Allergies Home Medications Medication Instructions Recorded Confirmed Type Albuterol Inhaler [Ventolin Hfa 2 puff INHALATION RT-Q4H PRN 05/05/19 05/05/19 History Inhaler] Allergies Allergy/AdvReac Type Severity Reaction Status Date / Time No Known Allergies Allergy Verified 05/05/19 11:15 Exam Osteopathic Statement: *. No significant issues noted on an osteopathic structural exam other than those noted in the History and Physical/Consult. Vital Signs Temp Pulse Pulse Resp BP BP Pulse Ox 05/05/19 15:40 114 H 05/05/19 15:32 112 H 05/05/19 13:20 98.4 F 118 H 28 H 124/76 97 05/05/19 13:05 98.6 F 118 H 28 H 124/76 97 05/05/19 12:11 112 H 18 124/84 96 05/05/19 11:43 122 H 05/05/19 11:32 117 H 05/05/19 11:27 120 H 18 115/80 95 05/05/19 10:36 20 05/05/19 10:33 98.2 F 118 H 18 112/77 96 Intake and Output 05/05/19 05/05/19 05/05/19 06:59 14:59 22:59 Other: Weight 74.389 kg
--- NOTE | 2019-05-05 16:55 | P.HPIM ---
History of Present Illness 24-year-old Pleasant female came in with compensative shortness of breath does have history of asthma does smoke came in with complains of cough and tiredness. Patient is presently 5 months . Influenza testing was ordered. Patient denied any significant body aches fever chills patient is bit tachycardic as well. Patient was evaluated pulmonary and the OB services as well. Patient is presently on IV steroids patient is close to why ability of He does because of which I'll continue with the steroids tonight and will switch to oral steroids tomorrow. Patient is complaining of severe short of breath. Pulmonology started her on oral azithromycin. Patient is complaining of cough without any significant sputum production. Review of Systems REVIEW OF SYSTEMS: CONSTITUTIONAL: No fever, no malaise, no fatigue. HEENT: No recent visual problems or hearing problems. Denied any sore throat. CARDIOVASCULAR: No chest pain, orthopnea, PND, no palpitations, no syncope. PULMONARY: no hemoptysis. GASTROINTESTINAL: No diarrhea, no nausea, no vomiting, no abdominal pain. NEUROLOGICAL: No headaches, no weakness, no numbness. HEMATOLOGICAL: Denies any bleeding or petechiae. GENITOURINARY: Denies any burning micturition, frequency, or urgency. MUSCULOSKELETAL/RHEUMATOLOGICAL: Denies any joint pain, swelling, or any muscle pain. ENDOCRINE: Denies any polyuria or polydipsia. The rest of the 14-point review of systems is negative. Past Medical History Past Medical History: Asthma History of Any Multi-Drug Resistant Organisms: None Reported Past Surgical History: Appendectomy, Section Past Anesthesia/Blood Transfusion Reactions: No Reported Reaction Past Psychological History: No Psychological Hx Reported Smoking Status: Light tobacco smoker Past Alcohol Use History: None Reported Past Drug Use History: None Reported - Past Family History Mother Family Medical History: Diabetes Mellitus, Hypertension Medications and Allergies Home Medications Medication Instructions Recorded Confirmed Type Albuterol Inhaler [Ventolin Hfa 2 puff INHALATION RT-Q4H PRN 05/05/19 05/05/19 History Inhaler] Allergies Allergy/AdvReac Type Severity Reaction Status Date / Time No Known Allergies Allergy Verified 05/05/19 11:15 Physical Exam Vitals: Vital Signs Temp Pulse Pulse Resp BP BP Pulse Ox 05/05/19 15:40 114 H 05/05/19 15:32 112 H 05/05/19 13:20 98.4 F 118 H 28 H 124/76 97 05/05/19 13:05 98.6 F 118 H 28 H 124/76 97 05/05/19 12:11 112 H 18 124/84 96 05/05/19 11:43 122 H 05/05/19 11:32 117 H 05/05/19 11:27 120 H 18 115/80 95 05/05/19 10:36 20 05/05/19 10:33 98.2 F 118 H 18 112/77 96 Intake and Output 05/05/19 05/05/19 05/05/19 06:59 14:59 22:59 Other: Weight 74.389 kg PHYSICAL EXAMINATION: GENERAL: The patient is alert and oriented x3, not in any acute distress. Well developed, well nourished. HEENT: Pupils are round and equally reacting to light. EOMI. No scleral icterus. No conjunctival pallor. Normocephalic, atraumatic. No pharyngeal erythema. No thyromegaly. CARDIOVASCULAR: S1 and S2 present. No murmurs, rubs, or gallops. PULMONARY: Good air entry with significant exudative wheezing ABDOMEN: Soft, nontender, nondistended, normoactive bowel sounds. No palpable organomegaly. MUSCULOSKELETAL: No joint swelling or deformity. EXTREMITIES: No cyanosis, clubbing, or pedal edema. NEUROLOGICAL: Gross neurological examination did not reveal any focal deficits. SKIN: No rashes. Thrombosis Risk Factor Assmnt - Choose All That Apply Any of the Below Risk Factors Present?: Yes Each Factor Represents 1 point: Obesity (BMI >25), or Thrombosis Risk Factor Assessment Total Risk Factor Score: 2 Thrombosis Risk Factor Assessment Level: Low Risk Assessment and Plan Plan: -Acute asthma exacerbation: Patient was started on systemic steroids and additional treatments which will be continued patient it was switched to oral steroids as soon as possible as patient is 5 months . -Nicotine abuse and marijuana use: Counseling was provided
[2019-05-05] MEDS: BUDESONIDE 1 MG/2 ML NEBU INHALATION SCH (20:52)
[2019-05-05] MEDS: FORMOTEROL FUMARATE 20 MCG/2 ML NEBU INHALATION SCH (20:52)
[2019-05-05] MEDS: methylPREDNISolone SOD SUCCI 40 MG/ML 1 ML VIAL IV SCH (21:40)
[2019-05-05] MEDS ORDERED: ACETAMINOPHEN TAB 500 MG TAB PO PRN (23:45)
[2019-05-06] MEDS: PRENATAL VIT-IRON-FOLIC ACID 1 EACH CAP PO SCH (09:34)
[2019-05-06] MEDS: BUDESONIDE 1 MG/2 ML NEBU INHALATION SCH ×2 (09:35→18:41)
[2019-05-06] MEDS: AZITHROMYCIN 500 MG TAB PO SCH (09:35)
[2019-05-06] MEDS: IPRATROPIUM-ALBUTEROL 3 ML NEB INHALATION PRN ×2 (09:35→18:41)
[2019-05-06] MEDS: FORMOTEROL FUMARATE 20 MCG/2 ML NEBU INHALATION SCH ×2 (09:35→18:41)
[2019-05-06] MEDS: methylPREDNISolone SOD SUCCI 40 MG/ML 1 ML VIAL IV SCH (09:38)
--- NOTE | 2019-05-06 10:30 | P.PN ---
Subjective Progress Note Date: 05/06/19 Principal diagnosis: Acute exacerbation of mild intermittent chronic bronchial asthma This is a very pleasant 24-year-old female patient with no known primary care physician. She does have a history of mild intermittent chronic bronchial asthma and his Ventolin HFA at home. Sometimes she uses her mother's nebulizer. She has chronic and ongoing tobacco dependence. Occasional marijuana use. She states she is currently 5 months . She originally presented to the [facility] ER earlier this morning with complaints of shortness of breath, chest tightness and wheezing. Due to her she was transferred here to the emergency room for OB care. She is seen today in consultation in the emergency room. She is currently awake and alert in no acute distress. Maintaining O2 saturations in the 90s on room air. She is dyspneic with minimal exertion. Somewhat bronchospastic and wheezy. No fever, chills or night sweats. She is afebrile. Tachycardic. The patient is seen today 05/06/2019 in follow-up on the obstetrics unit. She is improved today compared to yesterday. Still with some sinus congestion. Still with some mild wheezing. Breathing easier today as compared to yesterday. She's been on bronchodilators and IV steroids. On empiric antibiotics. She is maintaining O2 saturations in the 90s on room air. She's been afebrile. Hemodynamically stable. Influenza screen was negative. Objective - Vital Signs Vital signs: Vital Signs Temp 98.3 F 05/06/19 00:00 Pulse 108 H 05/06/19 09:59 Resp 28 H 05/06/19 00:00 BP 125/73 05/06/19 00:00 Pulse Ox 96 05/06/19 00:00 Intake & Output 05/05/19 05/06/19 05/06/19 18:59 06:59 18:59 Weight 74.389 kg Other: # Voids 2 1 - Exam GENERAL EXAM: Alert, pleasant 24-year-old female patient, 23 weeks gestation, active, comfortable in no apparent distress. On room air. HEAD: Normocephalic. EYES: Normal reaction of pupils, equal size. NOSE: Clear with pink turbinates. THROAT: No erythema or exudates. NECK: No masses, no JVD. CHEST: No chest wall deformity. LUNGS: Equal air entry with bilateral end expiratory wheeze. CVS: S1 and S2 normal with no audible murmur, regular rhythm. ABDOMEN: Gestational abdomen, normal bowel sounds, no guarding or rigidity. SPINE: No scoliosis or deformity SKIN: No rashes CENTRAL NERVOUS SYSTEM: No focal deficits, tone is normal in all 4 extremities. EXTREMITIES: There is no peripheral edema. No clubbing, no cyanosis. Peripheral pulses are intact. Assessment and Plan Assessment: 1 Acute exacerbation of mild intermittent chronic bronchial asthma 2 , 23 weeks gestation 3 Chronic and ongoing tobacco use 4 Marijuana use Plan The patient was seen and evaluated by Dr. Soto We'll transition to a prednisone burst and taper. Continue DuoNeb inhalations and add Symbicort for outpatient maintenance medication Complete a course of azithromycin The patient is educated regarding the importance of complete smoking cessation I, the cosigning physician, performed a history & physical examination of the patient. Lungs sounds with bilateral end expiratory wheeze. Maintaining good O2 saturations in the 90s on room air. I discussed the assessment and plan of care with my nurse practitioner, Malena Hernandez. I attest to the above note as dictated by her.
--- NOTE | 2019-05-06 11:10 | P.PN ---
Progress Note - Text Progress Note Date: 05/06/19 overall she is doing better. will await final recomendations from pulmonary. all questions answered. stable from OB standpoint and can be discharged when medicine feels she is stable. has follow up appointment with me 05/18/19
--- NOTE | 2019-05-06 15:16 | P.PN ---
Subjective Patient is admitted for COPD exacerbation patient remains bronchospastic and wheezing and the radio engineer recommended and to continue 60 every 6 of Solu- Medrol for 24 more hours. the has some some sinus congestion comments as a screen is negative patient is still short of breath and patient is little less tachycardic now Constitutional: Denied any fatigue denied any fever. Cardio vascular: denied any chest pain, palpitations Gastrointestinal denied any nausea vomiting Pulmonary: As mentioned in HPI Neurologic denied any new focal deficits All inpatient medications were reviewed and appropriate changes in these medications as dictated in the interval history and assessment and plan. Objective - Vital Signs Vital signs: Vital Signs Temp 98.3 F 05/06/19 08:00 Pulse 108 H 05/06/19 09:59 Resp 20 05/06/19 08:00 BP 126/72 05/06/19 08:00 Pulse Ox 97 05/06/19 08:00 Intake & Output 05/05/19 05/06/19 05/06/19 18:59 06:59 18:59 Weight 74.389 kg Other: # Voids 2 1 - Exam PHYSICAL EXAMINATION: GENERAL: The patient is alert and oriented x3, not in any acute distress. Well developed, well nourished. HEENT: Pupils are round and equally reacting to light. EOMI. No scleral icterus. No conjunctival pallor. Normocephalic, atraumatic. No pharyngeal erythema. No thyromegaly. CARDIOVASCULAR: S1 and S2 present. No murmurs, rubs, or gallops. PULMONARY: Good air entry with significant exudative wheezing ABDOMEN: Soft, nontender, nondistended, normoactive bowel sounds. No palpable organomegaly. MUSCULOSKELETAL: No joint swelling or deformity. EXTREMITIES: No cyanosis, clubbing, or pedal edema. NEUROLOGICAL: Gross neurological examination did not reveal any focal deficits. SKIN: No rashes. Assessment and Plan Plan: -Acute asthma exacerbation: Patient is on systemic steroids and inhalational treatments treatments which will be continued . -Nicotine abuse and marijuana use: Counseling was provided
[2019-05-06] MEDS: methylPREDNISolone SOD SUCCI 125 MG/2 ML VIAL IV SCH ×2 (15:30→23:29)
[2019-05-06] MEDS: SODIUM CHLORIDE 0.9% 1,000 ML IV SCH (21:36)
[2019-05-07] MEDS: methylPREDNISolone SOD SUCCI 125 MG/2 ML VIAL IV SCH ×2 (05:29→11:28)
[2019-05-07] MEDS: AZITHROMYCIN 500 MG TAB PO SCH (08:58)
[2019-05-07] MEDS: PRENATAL VIT-IRON-FOLIC ACID 1 EACH CAP PO SCH (08:58)
[2019-05-07] MEDS: FORMOTEROL FUMARATE 20 MCG/2 ML NEBU INHALATION SCH (09:23)
[2019-05-07] MEDS: BUDESONIDE 1 MG/2 ML NEBU INHALATION SCH (09:23)
[2019-05-07] MEDS: IPRATROPIUM-ALBUTEROL 3 ML NEB INHALATION PRN ×2 (09:23→13:16)
[2019-05-07 09:30] VITALS: RESP 16
[2019-05-07 09:31] VITALS: BP 110/63; TEMP 98.5
--- NOTE | 2019-05-07 09:33 | P.PN ---
Subjective Progress Note Date: 05/07/19 Principal diagnosis: Acute exacerbation of mild intermittent chronic bronchial asthma This is a very pleasant 24-year-old female patient with no known primary care physician. She does have a history of mild intermittent chronic bronchial asthma and his Ventolin HFA at home. Sometimes she uses her mother's nebulizer. She has chronic and ongoing tobacco dependence. Occasional marijuana use. She states she is currently 5 months . She originally presented to the [facility] ER earlier this morning with complaints of shortness of breath, chest tightness and wheezing. Due to her she was transferred here to the emergency room for OB care. She is seen today in consultation in the emergency room. She is currently awake and alert in no acute distress. Maintaining O2 saturations in the 90s on room air. She is dyspneic with minimal exertion. Somewhat bronchospastic and wheezy. No fever, chills or night sweats. She is afebrile. Tachycardic. The patient is seen today 05/06/2019 in follow-up on the obstetrics unit. She is improved today compared to yesterday. Still with some sinus congestion. Still with some mild wheezing. Breathing easier today as compared to yesterday. She's been on bronchodilators and IV steroids. On empiric antibiotics. She is maintaining O2 saturations in the 90s on room air. She's been afebrile. Hemodynamically stable. Influenza screen was negative. The patient is seen today 05/07/2019 in follow-up on the obstetrics unit. She is currently resting quite comfortably in bed. Improved today compared to yesterday. Continued on IV Solu-Medrol. Less bronchospastic and wheezy. She is maintaining O2 saturations up to 100% on room air. She's afebrile. Continued on DuoNeb inhalations, Pulmicort and Perforomist inhalations, IV Solu- Medrol, empiric antibiotics in the form of azithromycin. Objective - Vital Signs Vital signs: Vital Signs Temp 97.7 F 05/06/19 23:36 Pulse 78 05/06/19 23:36 Resp 18 05/06/19 23:36 BP 123/72 05/06/19 23:36 Pulse Ox 100 05/06/19 23:36 Intake & Output 05/06/19 05/07/19 05/07/19 18:59 06:59 18:59 Intake Total 500 Balance 500 Intake: IV 500 Sodium Chloride 0.9% 1, 500 000 ml @ 20 mls/hr IV . Q24H [facility] Rx#:[id number] Other: Voiding Method Toilet # Voids 2 1 - Exam GENERAL EXAM: Alert, pleasant 24-year-old female patient, 23 weeks gestation, active, comfortable in no apparent distress. On room air. HEAD: Normocephalic. EYES: Normal reaction of pupils, equal size. NOSE: Clear with pink turbinates. THROAT: No erythema or exudates. NECK: No masses, no JVD. CHEST: No chest wall deformity. LUNGS: Equal air entry with bilateral end expiratory wheeze. CVS: S1 and S2 normal with no audible murmur, regular rhythm. ABDOMEN: Gestational abdomen, normal bowel sounds, no guarding or rigidity. SPINE: No scoliosis or deformity SKIN: No rashes CENTRAL NERVOUS SYSTEM: No focal deficits, tone is normal in all 4 extremities. EXTREMITIES: There is no peripheral edema. No clubbing, no cyanosis. Peripheral pulses are intact. Assessment and Plan Assessment: 1 Acute exacerbation of mild intermittent chronic bronchial asthma 2 , 23 weeks gestation 3 Chronic and ongoing tobacco use 4 Marijuana use Plan The patient was seen and evaluated by Dr. Soto We'll transition to a prednisone burst and taper. Continue DuoNeb inhalations and add Symbicort for outpatient maintenance medication Complete a course of azithromycin The patient is again educated regarding the importance of complete smoking cessation Upon discharge she could follow-up in our office in 1-2 weeks' time to help control her asthma while . I, the cosigning physician, performed a history & physical examination of the patient. Lungs sounds with bilateral end expiratory wheeze. Maintaining good O2 saturations in the 90s on room air. I discussed the assessment and plan of care with my nurse practitioner, Malena Hernandez. I attest to the above note as dictated by her.
[2019-05-07] MEDS: SODIUM CHLORIDE 0.9% 1,000 ML IV SCH (11:31)
[2019-05-07 13:32] VITALS: PULSE 95
--- NOTE | 2019-05-07 17:21 | P.DS ---
Providers Date of admission: 05/07/19 11:22 Attending physician: Herrera Guillaume MD Consults: 05/05/19 11:06 Consult Physician Routine Consulting Provider: Ravinder Viera Consult Reason/Comments: Do you want consulting provider notified?: Yes 05/05/19 11:16 Consult Physician Urgent Consulting Provider: Candis Soto Consult Reason/Comments: asthma Do you want consulting provider notified?: Yes Primary care physician: Stated None Hospital Course: Patient was admitted for asthma exacerbation improved now patient also has sinusitis which is mostly ALLERGIC. Patient will be discharged and azithromycin weaning dose of steroids. Extensive nicotine cessation counseling was provided patient is 24 weeks PHYSICAL EXAMINATION: GENERAL: The patient is alert and oriented x3, not in any acute distress. Well developed, well nourished. HEENT: Pupils are round and equally reacting to light. EOMI. No scleral icterus. No conjunctival pallor. Normocephalic, atraumatic. No pharyngeal erythema. No thyromegaly. CARDIOVASCULAR: S1 and S2 present. No murmurs, rubs, or gallops. PULMONARY: Wheezing improved significantly ABDOMEN: Soft, distended with MUSCULOSKELETAL: No joint swelling or deformity. EXTREMITIES: No cyanosis, clubbing, or pedal edema. NEUROLOGICAL: Gross neurological examination did not reveal any focal deficits. SKIN: No rashes. The rest of the medical problems and hospitalization course please refer to my progress note from yesterday Patient Condition at Discharge: Fair Plan - Discharge Summary New Discharge Prescriptions: New predniSONE 10 mg PO DAILY #30 tab Ranitidine HCl [Zantac] 75 mg PO BID #30 tab Azithromycin [Zithromax Tri-Lfy] 500 mg PO DAILY 3 Days #3 tab No Action Albuterol Inhaler [Ventolin Hfa Inhaler] 2 puff INHALATION RT-Q4H PRN PRN Reason: Shortness Of Breath Discharge Medication List Albuterol Inhaler [Ventolin Hfa Inhaler] 2 puff INHALATION RT-Q4H PRN 05/05/19 [History] Azithromycin [Zithromax Tri-Fly] 500 mg PO DAILY 3 Days #3 tab 05/07/19 [Rx] Ranitidine HCl [Zantac] 75 mg PO BID #30 tab 05/07/19 [Rx] predniSONE 10 mg PO DAILY #30 tab 05/07/19 [Rx] Follow up Appointment(s)/Referral(s): Linda Muller MD [STAFF PHYSICIAN] - 1 Week None,Stated [Primary Care Provider] - 1-2 days Discharge Disposition: HOME SELF-CARE
== END 2019-05-07 16:15 | disposition home or self-care (01) | DRG 832 ==
LOC: EC 10:28 → 6PED 11:05 → 4FBP 12:34 → OBSVTOIN 05-07 11:22
PROVIDERS: ADMIT Internal Medicine; ATTEND Internal Medicine
DX: O99.512 Diseases of the respiratory system complicating pregnancy, second trimester (principal); J45.21 Mild intermittent asthma with (acute) exacerbation; F12.90 Cannabis use, unspecified, uncomplicated; O99.332 Smoking (tobacco) complicating pregnancy, second trimester; F17.210 Nicotine dependence, cigarettes, uncomplicated; O99.322 Drug use complicating pregnancy, second trimester; Z3A.24 24 weeks gestation of pregnancy; Z82.49 Family history of ischemic heart disease and other diseases of the circulatory system; Z83.3 Family history of diabetes mellitus
CPT/HCPCS: 87502; 94640; 99285

== ENCOUNTER 2019-06-29 11:25 | Outpatient (CLI) | payer OTHER ==
[2019-06-29 12:44] VITALS: BP 124/83; PULSE 110; RESP 18
[2019-06-29 12:51] LABS: Bacteria,Urine Many /hpf; Mucus,Urine Moderate /hpf; RBC,Urine 2 /hpf (0-5); Squamous Epithelial Cell,Urine 8 /hpf (0-4); WBC,Urine 10 /hpf (0-5)
[2019-06-29 12:52] LABS: Appearance,Urine Slightly Cloudy (Clear); Color,Urine Yellow; Specific Gravity,Urine 1.025 (1.001-1.035)
[2019-06-29 12:53] LABS: Glucose,Urine (UA) Negative (Negative); Ketones,Urine 3+ (Negative); Protein,Urine 2+ (Negative)
[2019-06-29 12:54] LABS: Bilirubin,Urine 1+ (Negative); Blood,Urine Negative (Negative); Leukocyte Esterase,Urine Small (Negative); Nitrite,Urine Negative (Negative)
[2019-06-29] MEDS ORDERED: LACTATED RINGERS 1,000 ML IV SCH (13:45)
[2019-06-29] MEDS ORDERED: ONDANSETRON 4 MG/2 ML VIAL IM STA (14:01)
[2019-06-29] MEDS ORDERED: ACETAMINOPHEN IV (For NPO) 1,000 MG in EMPTY BAG 1 BAG IVPB STA (14:02)
[2019-06-29 14:19] LABS: Basophils % (A) 0 %; Eosinophils % (A) 0 %; HCT 37.1 % (34.0-46.0); Lymphocytes # (A) 0.7 k/uL (1.0-4.8); Lymphocytes % (A) 14 %; MCH 28.7 pg (25.0-35.0); MCHC 32.4 g/dL (31.0-37.0); MCV 88.8 fL (80.0-100.0); Mean Platelet Volume 8.9; Monocytes # (A) 0.3 k/uL (0-1.0); Monocytes % (A) 6 %; Neutrophils % (A) 77 %; Platelet Count 172 k/uL (150-450); RBC 4.18 m/uL (3.80-5.40); RDW 13.4 % (11.5-15.5); WBC 5.3 k/uL (3.8-10.6)
[2019-06-29] MEDS ORDERED: ONDANSETRON 4 MG/2 ML VIAL IVP STA (14:23)
[2019-06-29 14:24] LABS: ALT 18 U/L (4-34); AST 35 U/L (14-36); African American GFR (CKD) >90 (>60 ml/min/1.73 sqM); Blood Urea Nitrogen 4 mg/dL (7-17); LDH 586 U/L (313-618); Non-African American GFR(CKD) >90 (>60 ml/min/1.73 sqM); Uric Acid 6.4 mg/dL (3.7-7.4)
[2019-06-29 14:28] LABS: Creatinine,Urine Random 238.7 mg/dL; Protein/Creatinine Ratio,Urine 0.147
[2019-06-29 18:22] VITALS: TEMP 98.8
--- NOTE | 2019-07-11 10:02 | P.MSEPDOC ---
Presenting Problems - Arrival Data Date of Arrival on Unit: 06/29/19 Time of Arrival on Unit: 11:45 Mode of Transport: Stretcher - Complaint OB-Reason for Admission/Chief Complaint: Other Comment: head cold, headache, back ache, abd pains, legs go numb, needle prickling in face, asthma-wheezing. used inhaler at 2300 ast night. took es tyl for headache at 1800 last night. Medical History - Information : 3 Para: 2 Term: 1 : 1 Abortions: Spontaneous or Elective: 0 Number of Living Children: 2 - Gestational Age Gestational Age by BRIGID (wks/days): 31 Weeks and 1 Days - History Complications: Prior Comment: c/s x 2. ist baby del at 27 weeks. 2nd baby full term Review of Systems - Review of Systems Constitutional: No problems Breast: No problems ENT: Cough, Nasal congestion Cardiovascular: No problems Respiratory: Wheezing Gastrointestinal: No problems Genitourinary: No problems Musculoskeletal: No problems Neurological: No problems Skin: No problems Comment: back pain at lumbar spine Vital Signs - Temperature Temperature: 98.8 F Temperature Source: Oral - Pulse Right Brachial Pulse Rate: 110 Pulse Assessment Method: Automatic Cuff - Respirations Respiratory Rate: 18 Oxygen Delivery Method: Room Air O2 Sat by Pulse Oximetry: 96 - Blood Pressure Right Arm Blood Pressure: 124/83 Blood Pressure Mean: 96 Blood Pressure Source: Automatic Cuff Medical Screen Scoring (Pre) - Cervical Exam Dilation: 0 cm = 0 Membranes: Intact - Uterine Contractions Frequency: > 5 minutes apart = 1 Duration: N/A Intensity: N/A - Maternal Vital Signs Maternal Blood Pressure: N/A Signs of Preeclampsia: Headache = 1 Maternal Respirations: N/A - Maternal Trauma Maternal Trauma: N/A - Assessment - Baby A Baseline FHR: 130 Heart Rate - NICHD Category: Category I (Normal) = 0 NST: Reactive Position: N/A Station: N/A - Total Score - Baby A Total Score - Baby A: 2 - Total Score - Baby B Total Score - Baby B: 2 - Total Score - Baby C Total Score - Baby C: 2 - Level of Risk - Baby A Level of Risk - Baby A: Low (0-5) - Level of Risk - Baby B Level of Risk - Baby B: Low (0-5) - Level of Risk - Baby C Level of Risk - Baby C: Low (0-5) Physician Notification (Pre) - Physician Notified Physician Notified Date: 06/29/19 Physician Notified Time: 12:10 Spoke With: kym Reyes Order Received: Yes - Notification Comment Comment: ua, ffn, influenza swab Medical Screen Scoring (Post) - Cervical Exam Dilation: Exam Deferred Effacement: Exam Deferred Membranes: Intact - Uterine Contractions Frequency: N/A Duration: N/A Intensity: N/A - Maternal Vital Signs Maternal Temperature: N/A Maternal Blood Pressure: N/A Signs of Preeclampsia: Headache = 1 Maternal Respirations: N/A - Pain Assessment Pain Location and Character: Head Pain Scale Used: Numeric (1 - 10) Pain Intensity: 3 Pain Description: Dull Pain Frequency: Intermittent Pain Duration: 15 Pain Duration Units: Minutes Pain Behavior: None Exhibited, Moving Slowly, Sleeping, Vocalization - Maternal Trauma Maternal Trauma: N/A - Assessment - Baby A Heart Rate: 135 Heart Rate - NICHD Category: Category I (Normal) = 0 NST: Reactive Position: N/A Station: N/A - Total Score Total Score - Baby A: 1 Total Score - Baby B: 1 Total Score - Baby C: 1 - Post Treatment Level of Risk Post Treatment Level of Risk - Baby A: Low (0-5) Post Treatment Level of Risk - Baby B: Low (0-5) Post Treatment Level of Risk - Baby C: Low (0-5) Physician Notification (Post) - Physician Notified Physician Notified Date: 06/29/19 Physician Notified Time: 16:15 Spoke With: kym Reyes Order Received: Yes - Notification Comment Comment: if feeling better may be discharged home. Disposition - Disposition OB Disposition: Discharge to home Discharge Date: 06/29/19 Discharge Time: 17:10 I agree with the RN Medical Screening Exam: Yes Risk & Benefit of care provided described in d/c instruction: Yes Diagnosis: RELATED CONDITIONS, UNSPECIFIED, THIRD TRIMESTER
== END 2019-06-29 17:10 | disposition home or self-care (01) ==
LOC: FBPOP 11:25
PROVIDERS: ATTEND Obstetrics & Gynecology
DX: O26.93 Pregnancy related conditions, unspecified, third trimester (principal); Z3A.31 31 weeks gestation of pregnancy
CPT/HCPCS: 59025; 96360; 96361; 96367; 96375; 82731; 82570; 84156; 82565; 83615; 84450; 84460; 84520; 84550; 85025; 85384; 81001; 87502; G0463; J2405; J0131; 99214

== ENCOUNTER 2019-08-24 06:31 | Inpatient (IN) | payer OTHER ==
[2019-08-19 14:36] VITALS: BMI 36.1
[2019-08-24] MEDS ORDERED: LACTATED RINGERS 1,000 ML IV ONE (06:38)
[2019-08-24] MEDS ORDERED: CITRIC ACID-SODIUM CITRATE 15 ML CUP PO ONE (07:00)
[2019-08-24 07:15] LABS: Basophils % (A) 0 %; Eosinophils # (A) 0.3 k/uL (0-0.7); Eosinophils % (A) 3 %; HCT 42.8 % (34.0-46.0); HGB 13.9 gm/dL (11.4-16.0); Lymphocytes # (A) 2.2 k/uL (1.0-4.8); Lymphocytes % (A) 20 %; MCH 28.7 pg (25.0-35.0); MCHC 32.5 g/dL (31.0-37.0); MCV 88.2 fL (80.0-100.0); Mean Platelet Volume 9.4; Monocytes # (A) 0.5 k/uL (0-1.0); Monocytes % (A) 4 %; Neutrophils # (A) 8.1 k/uL (1.3-7.7); Neutrophils % (A) 71 %; Platelet Count 202 k/uL (150-450); RBC 4.85 m/uL (3.80-5.40); RDW 14.2 % (11.5-15.5); WBC 11.4 k/uL (3.8-10.6)
[2019-08-24] MEDS ORDERED: MORPHINE SULFATE (PF) 0.3 MG/0.3 ML SYR ONE (07:36)
[2019-08-24] MEDS ORDERED: OXYTOCIN 10 UNIT/ML 1 ML VIAL ONE (07:36)
[2019-08-24] MEDS ORDERED: ONDANSETRON 4 MG/2 ML VIAL ONE (07:36)
[2019-08-24] MEDS ORDERED: KETOROLAC 30 MG/ML 1 ML VIAL ONE (07:36)
[2019-08-24] MEDS ORDERED: HYDROmorphone 0.5 MG/0.5 ML SYRINGE IVP PRN (08:13)
[2019-08-24] MEDS ORDERED: NALOXONE 0.4 MG/ML 1 ML VIAL IV PRN ×2 (08:13→08:18)
[2019-08-24] MEDS ORDERED: ONDANSETRON 4 MG/2 ML VIAL IVP PRN ×2 (08:13→08:18)
[2019-08-24] MEDS ORDERED: diphenhydrAMINE 50 MG/ML 1 ML VIAL IVP PRN ×3 (08:13→08:18)
[2019-08-24] MEDS ORDERED: ACETAMINOPHEN TAB 325 MG TAB PO PRN (08:18)
[2019-08-24] MEDS ORDERED: diphenhydrAMINE 50 MG CAP PO PRN (08:18)
[2019-08-24] MEDS ORDERED: diphenhydrAMINE 25 MG CAP PO PRN (08:18)
[2019-08-24] MEDS ORDERED: METOCLOPRAMIDE 5 MG/ML 2 ML VIAL IVP PRN (08:18)
[2019-08-24] MEDS ORDERED: ZOLPIDEM 5 MG TAB PO PRN (08:18)
--- NOTE | 2019-08-24 08:21 | P.HPOB ---
History of Present Illness H&P Date: 08/24/19 Chief Complaint: Intrauterine at term: Prior sections Vannesa is a 24-year-old at 39 weeks gestation with 2 prior C-sections that is here for repeat low transverse section. Her course remained generally unremarkable although 33 she did feel like she had some flulike symptoms. Throughout the remainder the she doesn't have any significant symptoms or issues and she is feeling well at this time. There is a category 2 tracing noted on the monitor. I was called at just before 7 AM to tell minute there was a deceleration on the monitor and that otherwise heart tones were reassuring but nonreactive. We moved the up by 30 minutes as the section room was actually being occupied by another physician doing and a section and could not do an immediate . Heart tones rebounded to baseline of approximately 140. During this time patient relates that the baby was still moving fine and she was not feeling contractions so is unclear why the deceleration happened, but option was provided to the patient. Past Medical History Past Medical History: Asthma History of Any Multi-Drug Resistant Organisms: None Reported Past Surgical History: Appendectomy, Section Additional Past Surgical History / Comment(s): C/S x2 Past Anesthesia/Blood Transfusion Reactions: No Reported Reaction Additional Past Anesthesia/Blood Transfusion Reaction / Comment(s): experienced anxiety during anesthesia Past Psychological History: No Psychological Hx Reported Smoking Status: Current some day smoker Past Alcohol Use History: None Reported Past Drug Use History: None Reported - Past Family History Mother Family Medical History: Diabetes Mellitus, Hypertension Medications and Allergies Home Medications Medication Instructions Recorded Confirmed Type Albuterol Inhaler (Bulk) [Ventolin 2 puff INHALATION RT-Q4H PRN 05/05/19 08/19/19 History Hfa Inhaler] Allergies Allergy/AdvReac Type Severity Reaction Status Date / Time No Known Allergies Allergy Verified 08/24/19 06:38 Exam Osteopathic Statement: *. No significant issues noted on an osteopathic structural exam other than those noted in the History and Physical/Consult. Vital Signs Temp Pulse Resp BP 08/24/19 06:48 97.6 F 93 16 142/77 Intake and Output 08/23/19 08/24/19 08/24/19 22:59 06:59 14:59 Other: # Voids 1 Weight 78.018 kg - OBG Physical Exam Breast: both: normal (no masses) Abdomen: bowel sounds normal, no diffuse tenderness, no bruit present, no guarding noted, no hepatomegaly, no splenomegaly, no mass Vulva: both: normal Vagina: normal moisture, no discharge Cervix: no lesion, no discharge Uterus: normal size, normal contour Adnexa: both: normal Anus/Rectum: normal perianal skin, no rectal mass, no hemorrhoids, heme negative Results Result Diagrams: 08/24/19 07:00 Abnormal Lab Results - Last 24 Hours (Table) 08/24/19 Range/Units 07:00 WBC 11.4 H (3.8-10.6) k/uL Neutrophils # 8.1 H (1.3-7.7) k/uL
--- NOTE | 2019-08-24 08:24 | P.OP ---
Date of Procedure: 08/24/19 Preoperative Diagnosis: Intrauterine at term: Prior sections Postoperative Diagnosis: Same Procedure(s) Performed: Repeat low transverse section Anesthesia: spinal Surgeon: Ravinder Viera Calliope Player #1: Rashad Whatley Estimated Blood Loss (ml): 400 IV fluids (ml): 600 Urine output (ml): 200 Pathology: none sent Condition: stable Disposition: floor Operative Findings: Male scores were 8 and 9 at one and 5 minutes respectively and the weight was 6 lbs. 3 oz. There was thinning of the wall of the uterus at incision site and this was explained to the patient with increased risk with subsequent pregnancies of potential uterine tear Description of Procedure: Patient was taken to the operating suite where a spinal anesthetic was found be adequate. She was prepped and draped in the normal sterile fashion and placed in the dorsal supine position with leftward tilt. Initially a Pfannenstiel skin incision was made and this incision was then carried through to the underlying layer of the fascia with the second knife. Fascia was then nicked in midline and this opening was extended laterally with Nichols scissors. Superior and inferior aspect of this incision were then grasped tented up and bluntly and sharply dissected off the rectus muscles. Rectus muscles were then divided midline and sharp blunt dissection through the peritoneum was made. This opening was then extended superiorly and inferiorly with good visualization of both bowel bladder. Bladder blade was then placed and the vesicouterine peritoneum identified and dissected out of the operative field. Knife was then used to incise uterus it was very thin and did have a window noted. Therefore once incision was made was fully developed with a hemostat and extended bluntly. Head was then H medically delivered from left occiput anterior position. Anterior and posterior shoulders then easily delivered followed by the remainder the baby. Mouth nares were bulb suctioned and the umbilical cord was clamped cut usual fashion. Nursery personnel was present and assumed care. Placenta was then delivered intact Pitocin was added to the IV. Uterus was then exte riorized cleared of clots and debris and closed in 2 layers with 0 Vicryl suture. Once hemostasis was obtained blood and debris was suctioned from the posterior cul-de-sac and the uterus was reinserted into the abdomen. Peritoneal layer was then closed with 0 Vicryl suture. Fascial layer was closed with 0 Vicryl suture. One layer of 3-0 Vicryl placed in deep subcuticular tissues and the skin was then closed with 3-0 Vicryl subcuticular. Sponge, lap, needle counts were all correct 2. Patient was then taken to the recovery room in stable and satisfactory condition.
[2019-08-24] MEDS ORDERED: LACTATED RINGERS 1,000 ML IV SCH (08:30)
[2019-08-24] MEDS: KETOROLAC 30 MG/ML 1 ML VIAL IVP PRN ×2 (16:38→22:04)
[2019-08-24] MEDS: LACTATED RINGERS 1,000 ML IV SCH ×2 (16:55→16:59)
[2019-08-24] MEDS: SENNOSIDES-DOCUSATE SODIUM 1 EACH TAB PO SCH (19:51)
[2019-08-25 05:53] LABS: Basophils % (A) 0 %; Eosinophils # (A) 0.2 k/uL (0-0.7); Eosinophils % (A) 2 %; HCT 38.9 % (34.0-46.0); HGB 12.4 gm/dL (11.4-16.0); Lymphocytes # (A) 1.5 k/uL (1.0-4.8); Lymphocytes % (A) 13 %; MCH 28.3 pg (25.0-35.0); MCHC 31.7 g/dL (31.0-37.0); MCV 89.1 fL (80.0-100.0); Mean Platelet Volume 8.8; Monocytes # (A) 0.4 k/uL (0-1.0); Monocytes % (A) 4 %; Neutrophils # (A) 9.7 k/uL (1.3-7.7); Neutrophils % (A) 80 %; Platelet Count 177 k/uL (150-450); RBC 4.37 m/uL (3.80-5.40); RDW 14.1 % (11.5-15.5); WBC 12.1 k/uL (3.8-10.6)
--- NOTE | 2019-08-25 07:56 | P.PN ---
Progress Note - Text Progress Note Date: 08/25/19 Postoperative day 1 status post section under spinal anesthesia, and i ntrathecal morphine given for postoperative analgesia, patient doing well, there is no anesthesia related complications, Patient had no headache, vital signs stable , Assessment and plan= postop day 1 status post , doing well there is no anesthesia related complication.
[2019-08-25] MEDS: HYDROcodone/APAP 7.5-325MG 1 EACH TAB PO PRN ×2 (08:15→15:41)
[2019-08-25] MEDS: SENNOSIDES-DOCUSATE SODIUM 1 EACH TAB PO SCH ×2 (08:15→20:31)
--- NOTE | 2019-08-25 08:57 | P.PNOBGPC ---
Subjective - Subjective Principal diagnosis: Postop day 1 Interval history: Patient is doing very well this morning. She is involuting, voiding and tolerating her diet. She is requesting discharge home later today and we'll will return and reevaluate at that time. Patient reports: Reports appetite normal, Reports voiding normally, Reports pain well controlled, Reports ambulating normally Warren: doing well Objective - Vital Signs Latest vital signs: Vital Signs Temp Pulse Resp BP Pulse Ox 08/25/19 04:00 98.4 F 78 16 116/76 100 08/25/19 02:00 16 08/25/19 00:00 98.2 F 74 16 122/80 100 08/24/19 22:00 16 08/24/19 20:00 98.4 F 78 16 102/64 100 08/24/19 18:00 15 08/24/19 16:00 98.4 F 89 15 120/73 99 08/24/19 14:00 16 08/24/19 13:13 100 08/24/19 12:00 98.4 F 90 15 133/74 99 08/24/19 10:25 97.6 F 70 15 119/80 08/24/19 09:55 72 15 124/83 08/24/19 09:37 99 08/24/19 09:25 67 15 127/76 99 08/24/19 09:13 18 99 08/24/19 09:10 71 15 111/72 99 Intake and Output 08/24/19 08/25/19 08/25/19 22:59 06:59 14:59 Output Total 1000 Balance -1000 Output: Urine 1000 Uretheral (Jean Baptiste) 300 Other: # Voids 1 - Exam Lungs: bilateral: normal Chest: Normal S1, Normal S2 Extremities: Present: normal Abdomen: Present: normal appearance, soft. Absent: distention, tenderness Incision: Present: normal, dry, intact Uterus: Present: normal, firm - Labs Labs: Abnormal Lab Results - Last 24 Hours (Table) 08/25/19 Range/Units 05:35 WBC 12.1 H (3.8-10.6) k/uL Neutrophils # 9.7 H (1.3-7.7) k/uL
[2019-08-25] MEDS: IBUPROFEN 600 MG TAB PO PRN (20:31)
[2019-08-26] MEDS: HYDROcodone/APAP 7.5-325MG 1 EACH TAB PO PRN (00:18)
[2019-08-26] MEDS ORDERED: ALBUTEROL NEBULIZED 2.5 MG/3 ML INHALATION PRN (00:55)
[2019-08-26 03:08] VITALS: RESP 16
[2019-08-26] MEDS: IBUPROFEN 600 MG TAB PO PRN (05:52)
[2019-08-26] MEDS: SENNOSIDES-DOCUSATE SODIUM 1 EACH TAB PO SCH (07:47)
--- NOTE | 2019-08-26 08:14 | P.DS ---
Providers Date of admission: 08/24/19 06:31 Expected date of discharge: 08/26/19 Attending physician: Ravinder Viera Primary care physician: Stated None Assessment: IS DOING VERY WELL POST OP DAY 2. SHE IS INVOLUTING, VOIDING AND TOLERATING HER DIET. SHE VOICES NO COMPLAINTS. VITAL SIGNS ARE STABLE AND AFEBRILE. HEART REGULAR, LUNGS CLEAR, EXTREMITIES WITHOUT PAIN. ABDOMEN SOFT UTERUS IS FIRM AND LOCHIA IS REPORTED LIGHT. HER INCISION IS OTHERWISE CLEAN DRY AND INTACT. WE'LL PLAN DISCHARGED HOME TODAY. PRESCRIPTION FOR NORCO AND MOTRIN ARE PROVIDED. DISCHARGE INSTRUCTIONS WERE THOROUGHLY REVIEWED. ALL QUESTIONS ARE ANSWERED FOR HER PRIOR TO DISCHARGE AND SHE IS AGAIN STABLE FOR DISCHARGE AT THIS TIME. Patient Condition at Discharge: Good Plan - Discharge Summary Discharge Rx Participant: No New Discharge Prescriptions: New Ibuprofen [Motrin] 600 mg PO Q6HR PRN #30 tab PRN Reason: Pain HYDROcodone/APAP 5-325MG [[place] 5-325] 1 tab PO Q4HR PRN #30 tab PRN Reason: Pain No Action Albuterol Inhaler (Bulk) [Ventolin Hfa Inhaler] 2 puff INHALATION RT-Q4H PRN PRN Reason: Shortness Of Breath Discharge Medication List Albuterol Inhaler (Bulk) [Ventolin Hfa Inhaler] 2 puff INHALATION RT-Q4H PRN 05/05/19 [History] HYDROcodone/APAP 5-325MG [[place] 5-325] 1 tab PO Q4HR PRN #30 tab 08/26/19 [Rx] Ibuprofen [Motrin] 600 mg PO Q6HR PRN #30 tab 08/26/19 [Rx] Follow up Appointment(s)/Referral(s): Ravinder Viera DO [Doctor of Osteopathic Medicine] - 2 Weeks Activity/Diet/Wound Care/Special Instructions: No heavy lifting, limit stairs and driving, and pelvic rest. If any high temperatures, heavy bleeding, or severe pain call my office Discharge Disposition: HOME SELF-CARE
[2019-08-26 08:39] VITALS: BP 127/85; PULSE 75; TEMP 97.9
== END 2019-08-26 11:30 | disposition home or self-care (01) | DRG 788 ==
LOC: 4FBP 06:31
PROVIDERS: ADMIT Obstetrics & Gynecology; ATTEND Obstetrics & Gynecology
PROC: 10D00Z1 Extraction of Products of Conception, Low, Open Approach (ICD-10-PCS; principal; 2019-08-24 07:49)
DX: O34.211 Maternal care for low transverse scar from previous cesarean delivery (principal); Z37.0 Single live birth; Z3A.39 39 weeks gestation of pregnancy; O99.334 Smoking (tobacco) complicating childbirth; O99.52 Diseases of the respiratory system complicating childbirth; J45.909 Unspecified asthma, uncomplicated; F17.200 Nicotine dependence, unspecified, uncomplicated; Z90.49 Acquired absence of other specified parts of digestive tract; Z83.3 Family history of diabetes mellitus; Z82.49 Family history of ischemic heart disease and other diseases of the circulatory system
CPT/HCPCS: 85025; 86850; 86900; 86901; 94640

== ENCOUNTER 2023-07-08 05:19 | Emergency (ER) | payer OTHER ==
[2023-07-08] MEDS: ACETAMINOPHEN TAB 500 MG TAB PO STA (05:33)
[2023-07-08] MEDS: KETOROLAC 15 MG/ML 1 ML VIAL IVP STA (06:08)
[2023-07-08] MEDS: SODIUM CHLORIDE 0.9% 1,000 ML IV ONE (06:08)
--- NOTE | 2023-07-08 06:13 | ED ---
General Adult HPI - General Source: EMS, RN notes reviewed, old records reviewed Mode of arrival: EMS Limitations: no limitations <Matt Vaughan - Last Filed: 07/08/23 06:13> <Peewee Duran - Last Filed: 07/08/23 08:16> - General Chief complaint: Upper Respiratory Infection Stated complaint: Chest Pain Time Seen by Provider: 07/08/23 05:27 - History of Present Illness Initial comments: 28-year-old female presenting with cough, congestion, fever. Patient does report myalgia, as well as chest congestion. She has history of asthma. Patient has had sore throat. She has had nausea without significant vomiting. No abdominal pain. (Matt Vaughan) - Related Data Home Medications Medication Instructions Recorded Confirmed Albuterol Inhaler [Ventolin Hfa 2 puff INHALATION RT-Q4H PRN 05/05/19 08/19/19 Inhaler] Previous Rx's Medication Instructions Recorded HYDROcodone/APAP 5-325MG [[place] 1 tab PO Q4HR PRN #30 tab 08/26/19 5-325] Ibuprofen [Motrin] 600 mg PO Q6HR PRN #30 tab 08/26/19 Albuterol Inhaler [Ventolin Hfa 1 - 2 puff INHALATION Q4HR PRN #1 07/08/23 Inhaler] each Albuterol Nebulized [Ventolin 2.5 mg INHALATION Q4H 8 Days #150 07/08/23 Nebulized] ml Oseltamivir [Tamiflu] 75 mg PO Q12HR 5 Days #10 cap 07/08/23 predniSONE 50 mg PO DAILY #5 tab 07/08/23 Allergies Allergy/AdvReac Type Severity Reaction Status Date / Time No Known Allergies Allergy Verified 08/24/19 06:38 Review of Systems ROS Other: All systems not noted in ROS Statement are negative. <Matt Vaughan - Last Filed: 07/08/23 06:13> ROS Other: All systems not noted in ROS Statement are negative. <Peewee Duran - Last Filed: 07/08/23 08:16> ROS Statement: Those systems with pertinent positive or pertinent negative responses have been documented in the HPI. Past Medical History Past Medical History: Asthma History of Any Multi-Drug Resistant Organisms: None Reported Past Surgical History: Appendectomy, Section Additional Past Surgical History / Comment(s): C/S x2 Past Anesthesia/Blood Transfusion Reactions: No Reported Reaction Additional Past Anesthesia/Blood Transfusion Reaction / Comment(s): experienced anxiety during anesthesia Past Psychological History: No Psychological Hx Reported Smoking Status: Vaper Past Alcohol Use History: None Reported Past Drug Use History: None Reported - Past Family History Mother Family Medical History: Diabetes Mellitus, Hypertension <Matt Vaughan - Last Filed: 07/08/23 06:13> General Exam Limitations: no limitations General appearance: alert, in no apparent distress Head exam: Present: atraumatic, normocephalic Eye exam: Present: normal appearance Neck exam: Present: normal inspection. Absent: tenderness, meningismus Respiratory exam: Present: decreased breath sounds. Absent: respiratory distress, wheezes Cardiovascular Exam: Present: normal rhythm, tachycardia GI/Abdominal exam: Present: soft. Absent: distended, tenderness, guarding Extremities exam: Present: normal inspection Neurological exam: Present: alert, oriented X3, CN II-XII intact. Absent: motor sensory deficit Psychiatric exam: Present: normal affect, normal mood Skin exam: Present: warm, dry <Matt Vaughan - Last Filed: 07/08/23 06:13> Course Vital Signs 07/08/23 07/08/23 07/08/23 05:21 06:36 06:50 Temperature 101.3 F H 99.7 F H Pulse Rate 124 H 112 H 104 H Respiratory 24 24 Rate Blood Pressure 138/81 116/75 O2 Sat by Pulse 92 L 95 Oximetry 07/08/23 07/08/23 07/08/23 07:01 07:12 07:55 Temperature 99.4 F Pulse Rate 100 118 H 109 H Respiratory 20 Rate Blood Pressure 121/70 O2 Sat by Pulse 100 96 Oximetry Medical Decision Making <Matt Vaughan - Last Filed: 07/08/23 06:13> <Peewee Duran - Last Filed: 07/08/23 08:16> - Medical Decision Making Was pt. sent in by a medical professional or institution (, PA, [employer], urgent care, hospital, or usp...) When possible be specific @ -No Did you speak to anyone other than the patient for history (EMS, parent, family, police, friend...)? What history was obtained from this source @ -No Did you review nursing and triage notes (agree or disagree)? Why? @ -I reviewed and agree with nursing and triage notes Were old charts reviewed (outside hosp., previous admission, EMS record, old EKG, old radiological studies, urgent care reports/EKG's, usp records)? Report findings @ -No old charts were reviewed Differential Diagnosis (chest pain, altered mental status, abdominal pain women, abdominal pain men, vaginal bleeding, weakness, fever, dyspnea, syncope, headache, dizziness, GI bleed, back pain, seizure, CVA, palpatations, mental health, musculoskeletal)? @ -Asthma exacerbation, influenza, coronavirus EKG interpreted by me (3pts min.). @ -As above X-rays interpreted by me (1pt min.). @ -Chest x-ray negative for acute cardiopulmonary disease CT interpreted by me (1pt min.). @ -None done U/S interpreted by me (1pt. min.). @ -None done What testing was considered but not performed or refused? (CT, X-rays, U/S, labs)? Why? @ -None What meds were considered but not given or refused? Why? @ -None Did you discuss the management of the patient with other professionals (professionals i.e. , PA, [employer], lab, RT, psych nurse, perinatal social worker, shirt finisher, teacher, geospatial program management officer, onsite case manager)? Give summary @ -No Was smoking cessation discussed for >3mins.? @ -No Was critical care preformed (if so, how long)? @ -No Were there social determinants of health that impacted care today? How? (Homelessness, low income, unemployed, alcoholism, drug addiction, transportation, low edu. Level, literacy, decrease access to med. care, [facility], rehab)? @ -No Was there de-escalation of care discussed even if they declined (Discuss DNR or withdrawal of care, Hospice)? DNR status @ -No What co-morbidities impacted this encounter? (DM, HTN, Smoking, COPD, CAD, Cancer, CVA, ARF, Chemo, Hep., AIDS, mental health diagnosis, sleep apnea, morbid obesity)? @ -[Asthma Was patient admitted / discharged? Hospital course, mention meds given and route, prescriptions, significant lab abnormalities, going to OR and other pertinent info. @ -28-year-old female presenting with flulike illness, testing positive for influenza. Patient is febrile upon arrival, treated with Tylenol, Toradol, IV fluids. She does have history of asthma and will be treated for asthma exacerbation secondary to influenza. Strict return parameters are discussed. Undiagnosed new problem with uncertain prognosis? @ -[No Drug Therapy requiring intensive monitoring for toxicity (Heparin, Nitro, Insulin, Cardizem)? @ -No Were any procedures done? @ -No Diagnosis/symptom? @ -[Asthma exacerbation, influenza Acute, or Chronic, or Acute on Chronic? @ -Acute Uncomplicated (without systemic symptoms) or Complicated (systemic symptoms)? @ -Complicated Side effects of treatment? @ -[No Exacerbation, Progression, or Severe Exacerbation? @ -No Poses a threat to life or bodily function? How? (Chest pain, [place], [place], pneumonia, PE, COPD, DKA, ARF, appy, cholecystitis, CVA, Diverticulitis, Homicidal, Suicidal, threat to staff... and all critical care pts) @ -Low risk at this time (Matt Vaughan) Patient was reevaluated multiple times, and she is feeling improved. She is off oxygen. She will be discharged home with her medications as provided by the previous provider in addition to nebulized albuterol. Patient was in agreement this plan. Strict return precautions discussed. (Peewee Duran) - Lab Data Lab Results 07/08/23 Range/Units 05:26 Influenza Type A (PCR) Detected A (Not Detectd) Influenza Type B (PCR) Not Detected (Not Detectd) RSV (PCR) Not Detected (Not Detectd) SARS-CoV-2 (PCR) Not Detected (Not Detectd) Disposition Is patient prescribed a controlled substance at d/c from ED?: No Time of Disposition: 06:11 <Matt Vaughan - Last Filed: 07/08/23 06:13> <Peewee Duran - Last Filed: 07/08/23 08:16> Clinical Impression: Influenza, Asthma Disposition: HOME SELF-CARE Condition: Fair Instructions (If sedation given, give patient instructions): Asthma (DC), Influenza (ED) Prescriptions: predniSONE 50 mg PO DAILY #5 tab Oseltamivir [Tamiflu] 75 mg PO Q12HR 5 Days #10 cap Albuterol Inhaler [Ventolin Hfa Inhaler] 1 - 2 puff INHALATION Q4HR PRN #1 each PRN Reason: Shortness Of Breath Albuterol Nebulized [Ventolin Nebulized] 2.5 mg INHALATION Q4H 8 Days #150 ml Referrals: None,Stated [Primary Care Provider] - 1-2 days Godwin Ceballos MD [STAFF PHYSICIAN] - 1-2 days
[2023-07-08] MEDS: OSELTAMIVIR 75 MG CAP PO STA (06:17)
--- NOTE | 2023-07-08 06:31 | XR ---
EXAMINATION TYPE: XR chest 2V DATE OF EXAM: 07/08/2023 COMPARISON: Chest x-ray February 02, 2019 HISTORY: Cough and fever. TECHNIQUE: Frontal and lateral views of the chest are obtained. FINDINGS: Diminished inspiration on current study. There is no suspicious new focal air space opacity , pleural effusion, or pneumothorax seen. The cardiac silhouette size remains within normal limits. The osseous structures are intact. IMPRESSION: No acute pulmonary infiltrate.
[2023-07-08] MEDS: DEXAMETHASONE SOD PHOSPHATE 10 MG/ML 1 ML VIAL IV STA (06:45)
[2023-07-08] MEDS: ALBUTEROL NEBULIZED 2.5 MG/3 ML INHALATION STA (06:49)
[2023-07-08] MEDS: IPRATROPIUM-ALBUTEROL 3 ML NEB INHALATION STA (06:49)
[2023-07-08 07:33] VITALS: BP 121/70; RESP 20; TEMP 99.4
[2023-07-08 08:04] VITALS: PULSE 109
== END 2023-07-08 08:31 | disposition home or self-care (01) ==
LOC: EC 05:19
DX: J10.1 Influenza due to other identified influenza virus with other respiratory manifestations (principal); J45.909 Unspecified asthma, uncomplicated; F17.290 Nicotine dependence, other tobacco product, uncomplicated; Z79.899 Other long term (current) drug therapy; Z20.822 Contact with and (suspected) exposure to COVID-19
CPT/HCPCS: 94640; 87636; 71046; 99285; 96374; 96375; 96361; J1100; J1885